=== PATIENT | male | born 1950 | race Caucasian/White ===

== ENCOUNTER 2017-04-26 11:15 | Observation (INO) ==
[2017-04-26] MEDS ORDERED: Ipratropium/Albuterol Neb 3 ML IH ONE (11:25)
[2017-04-26] MEDS ORDERED: methylPREDNISolone 125 MG/2 ML VIAL IVP ONE (11:25)
--- NOTE | 2017-04-26 11:38 | Emergency Department Note ---
Disposition Clinical Impression: Rectal bleeding, External hemorrhoid Disposition: Admitted As Inpatient Condition: Fair Referrals: Olaf Joseph DO [Primary Care Provider] - Forms: ED Satisfaction Letter Time of Disposition: 14:09 GI Bleed HPI - General Chief complaint: ED GI Bleed Stated complaint: "rectal bleeding" Time Seen by Provider: 04/26/17 11:20 Source: patient, EMS Mode of arrival: EMS Limitations: no limitations Nursing Notes Reviewed: Yes Vital Signs Reviewed: Yes - History of Present Illness HPI Narrative: 66-year-old comes in with grossly bloody stool. Patient states he has an external hemorrhoid had a bowel movement 3 days ago and noted persistent bleeding. Have a history of diverticular disease but states he's never had any bleeding from that. She does take iron. He says his stools are dark and tarry. Pt Subjective Complaint: blood streaked stool Onset (ago): day(s) Consistency: constant Severity: moderate Improves with: nothing Worsens with: nothing Context: hemorrhoids, anticoagulant use (Aspirin), other (Diverticular disease) Associated symptoms: Reports: none - Related Data Home Medications Medication Instructions Recorded Confirmed Albuterol Sulfate [Proventil Hfa] 1 puff IH Q6HR PRN 08/19/15 04/02/16 Amlodipine Besylate 5 mg PO DAILY 08/19/15 04/02/16 Carvedilol [Coreg] 50 mg PO BID 08/19/15 04/02/16 Oxygen 2 l AER CONT 08/19/15 04/02/16 Sennosides/Docusate Sodium [Senna 1 tab PO BID PRN 08/19/15 04/02/16 Plus] Sertraline [Zoloft] 100 mg PO HS 08/19/15 04/02/16 hydrOXYzine HCl [Hydroxyzine HCl] 50 mg PO HS 08/19/15 04/02/16 Budesonide/Formoterol 160/4.5 2 puff IH BIDR 12/11/15 04/02/16 [Symbicort 160/4.5] Fluticasone/Vilanterol [Breo 1 each IH DAILY 12/11/15 04/02/16 Ellipta 100-25 Mcg INH] Lisinopril [Zestril] 40 mg PO DAILY 12/11/15 04/02/16 cloNIDine HCl [CloNIDine HCl] 0.1 mg PO TID 12/11/15 04/02/16 hydroCHLOROthiazide 25 mg PO DAILY 12/11/15 04/02/16 [Hydrochlorothiazide] Folic Acid 1 mg PO DAILY 12/20/15 04/02/16 Albuterol Sulfate [Ventolin Hfa] 90 mcg IH PRN PRN 02/07/16 04/02/16 Atorvastatin Calcium [Lipitor] 20 mg PO DAILY 02/07/16 04/02/16 Psyllium Husk/Aspartame [Fiber 660 gm PO DAILY 02/07/16 04/02/16 Therapy Powder] Previous Rx's Medication Instructions Recorded Aspirin 81 mg PO DAILY tab.chew 04/09/16 Calcium Carbonate [Tums] 1,000 mg PO Q4HR PRN #0 tab.chew 04/09/16 Hydrocodone/Acetaminophen [Gates 1 each PO 3-4XD PRN #90 tablet 04/09/16 5-325 Tablet] LORazepam [Ativan] 1 mg PO TID PRN #90 tablet 04/09/16 TraZODone 100 mg PO HS PRN #0 tablet 04/09/16 Folic Acid 1 mg PO DAILY #30 tablet 03/11/17 LORazepam [Ativan] 0.5 mg PO HS #6 tablet 03/11/17 Allergies Allergy/AdvReac Type Severity Reaction Status Date / Time cat pelt standardized Allergy Rash Verified 04/26/17 11:22 allergenic ex Penicillins Allergy Hives Verified 03/11/17 15:30 ragweed pollen Allergy See Verified 03/11/17 15:30 Comments All systems ED: reviewed and negative except as stated. Constitutional: Denies: fever, chills, weakness, weight change Eyes: Denies: eye pain, eye discharge, vision change ENT ED: Denies: ear pain, throat pain, dental pain, hearing loss, epistaxis, congestion, dysphagia Cardiovascular: Denies: chest pain, palpitations, dyspnea on exertion, edema, syncope Respiratory: Denies: cough, dyspnea, wheezes, hemoptysis, stridor Gastrointestinal: Reports: hematochezia. Denies: abdominal pain, nausea, vomiting, diarrhea, constipation, hematemesis, melena Genitourinary: Denies: urgency, dysuria, frequency, hematuria Musculoskeletal: Denies: back pain, neck pain, arthralgia, myalgia Integumentary: Denies: rash, abrasion, lesions Neurological: Denies: headache, weakness, numbness, paresthesias, confusion, abnormal gait, vertigo Psychiatric: Denies: anxiety, depression, suicidal thoughts, homicidal thoughts , auditory hallucinations, visual hallucinations Endocrine: Denies: fatigue Hematological/Lymphatic: Denies: easy bleeding, easy bruising Allergic/Immunologic: Denies: facial swelling, urticaria Past Medical History - Past Medical History Medical history: Reports: non-contributory Surgical history: Reports: appendectomy, hip replacement, knee replacement, other Psychiatric history: Reports: previous psychiatric hospitalization. Denies: prior suicide attempt - Social History Smoking Status: Former smoker Smokeless Tobacco Status: No Alcohol use: Reports: occasionally Drug use: Reports: none Physical Exam - General Limitations: no limitations General appearance: alert, in no apparent distress - Head Head exam: atraumatic, normocephalic, normal inspection - Eye Eye exam: Present: normal appearance, PERRL, EOMI - ENT ENT exam: normal exam, normal oropharynx, mucous membranes moist - Neck Neck exam: Present: normal inspection, full ROM, trachea midline - Chest Chest inspection: Present: normal inspection, symmetric chest wall rise - Respiratory Respiratory exam: Present: normal lung sounds bilaterally - Cardiovascular Cardiovascular exam: Present: regular rate, normal rhythm, normal heart sounds - Abdominal Exam Abdominal exam: Present: soft, Non-Tender. Absent: tenderness, distention, guarding, rebound, rigidity - Rectal Exam Rectal exam: Present: black stool, bloody stool, hemorrhoids (External hemorrhoid) - Extremities Exam Extremities exam: Present: normal inspection, full ROM. Absent: tenderness, pedal edema - Expanded Lower Extremity Exam Neurovascular/Tendon exam: Absent: motor deficit, sensory deficit, tendon deficit Gait: not tested/not observed - Back Exam Back exam: Present: normal inspection, full ROM. Absent: tenderness - Neurological Exam Neurological exam: Present: alert, oriented X3 - Psychiatric Psychiatric exam: Present: normal affect, normal mood - Skin Skin exam: Present: warm, dry, intact, normal color Course - Reevaluation(s) Reevaluation #1: 66-year-old comes in with blood per rectum. Patient states his being on for the last couple of days. On exam the patient does have an external hemorrhoid that did have some blood on it however when I do the rectal he's got dark tarry stools above that. However he is also on iron which complicates things. I tried to get a sample of the stool above the hemorrhoid and we sent it and it was positive for blood. Since the patient's had a gram hemoglobin drop since his last workup go ahead and admit for evaluation. Time: 14:07 - Consultations Consultation #1: Discussed with Dr. Freeman, admit Time: 14:07 Vital Signs Temperature 98.8 F 04/26/17 11:23 Pulse Rate 52 04/26/17 11:23 Respiratory Rate 20 04/26/17 11:23 Blood Pressure 131/86 04/26/17 11:23 O2 Sat by Pulse Oximetry 96 04/26/17 11:23 Temperature 98.8 F 04/26/17 11:23 Pulse Rate 59 04/26/17 13:00 Respiratory Rate 20 04/26/17 13:00 Blood Pressure 128/85 04/26/17 13:00 O2 Sat by Pulse Oximetry 97 04/26/17 13:00 Oxygen Delivery Oxygen Delivery Nasal Cannula GI Bleed - Lab Data Result diagrams: 04/26/17 12:13 04/26/17 12:13 Lab Results 04/26/17 04/26/17 04/26/17 Range/Units 11:30 12:13 12:13 WBC 7.8 (4.3-11.1) K/mcL RBC 4.35 (4.19-5.50) M/mcL Hgb 12.5 L (12.9-16.9) g/dL Hct 38.2 (37.5-50.1) % MCV 87.8 (83.0-100.0) fL MCH 28.7 (28.0-33.3) pg MCHC 32.7 (31.6-35.5) g/dL RDW 15.1 H (11.5-14.5) % Plt Count 205 (140-400) K/mcL MPV 10.2 (9.4-12.4) fL Immature Gran % 0.5 (0-4) % Seg Neutrophils % 74.5 % Lymphocytes % 13.7 % Monocytes % 10.0 % Eosinophils % 0.9 % Basophils % 0.4 % Neutrophils # 5.8 (1.6-8.9) K/mcL Lymphocytes # 1.1 (0.6-4.6) K/mcL Monocytes # 0.8 (0.0-1.3) K/mcL Eosinophils # 0.1 (0.0-0.6) K/mcL Basophils # 0.0 (0.0-0.2) K/mcL PT 11.1 (9.4-12.1) Seconds INR 1.0 APTT 28.5 (26.0-36.0) Seconds Sodium (136-145) mEq/L Potassium (3.5-4.5) mEq/L Chloride (98-109) mEq/L Carbon Dioxide (19-29) mEq/L BUN (8-26) mg/dL Creatinine (0.72-1.25) mg/dL Est GFR ( Amer) (> 60) Est GFR (Non-Af Amer) (> 60) BUN/Creatinine Ratio (6-26) Glucose (70-99) mg/dL Calculated Osmolality (280-300) Calcium (8.6-10.8) mg/dL Stool Occult Blood Positive A (Negative) Blood Type Antibody Screen 04/26/17 04/26/17 Range/Units 12:13 12:13 WBC (4.3-11.1) K/mcL RBC (4.19-5.50) M/mcL Hgb (12.9-16.9) g/dL Hct (37.5-50.1) % MCV (83.0-100.0) fL MCH (28.0-33.3) pg MCHC (31.6-35.5) g/dL RDW (11.5-14.5) % Plt Count (140-400) K/mcL MPV (9.4-12.4) fL Immature Gran % (0-4) % Seg Neutrophils % % Lymphocytes % % Monocytes % % Eosinophils % % Basophils % % Neutrophils # (1.6-8.9) K/mcL Lymphocytes # (0.6-4.6) K/mcL Monocytes # (0.0-1.3) K/mcL Eosinophils # (0.0-0.6) K/mcL Basophils # (0.0-0.2) K/mcL PT (9.4-12.1) Seconds INR APTT (26.0-36.0) Seconds Sodium 140 (136-145) mEq/L Potassium 3.7 (3.5-4.5) mEq/L Chloride 102 (98-109) mEq/L Carbon Dioxide 29 (19-29) mEq/L BUN 21 (8-26) mg/dL Creatinine 1.10 (0.72-1.25) mg/dL Est GFR ( Amer) > 60 (> 60) Est GFR (Non-Af Amer) > 60 (> 60) BUN/Creatinine Ratio 19 (6-26) Glucose 104 H (70-99) mg/dL Calculated Osmolality 293 (280-300) Calcium 9.6 (8.6-10.8) mg/dL Stool Occult Blood (Negative) Blood Type B POSITIVE Antibody Screen NEGATIVE - EKG Data EKG attestation: Yes I reviewed and interpreted this EKG. EKG shows normal: sinus rhythm Rate: bradycardia Rhythm: NSR Voltage: c/w LVH Interpretation: no acute changes
[2017-04-26 12:24] LABS: Basophils % 0.4 %; Eosinophils # 0.1 K/mcL (0.0-0.6); Eosinophils % 0.9 %; Hematocrit 38.2 % (37.5-50.1); Hemoglobin 12.5 g/dL (12.9-16.9); Immature Granulocytes % 0.5 % (0-4); Lymphocytes # 1.1 K/mcL (0.6-4.6); Lymphocytes % 13.7 %; Mean Corpuscular HGB Conc 32.7 g/dL (31.6-35.5); Mean Corpuscular Hemoglobin 28.7 pg (28.0-33.3); Mean Corpuscular Volume 87.8 fL (83.0-100.0); Mean Platelet Volume 10.2 fL (9.4-12.4); Monocytes # 0.8 K/mcL (0.0-1.3); Neutrophils # 5.8 K/mcL (1.6-8.9); Platelet Count 205 K/mcL (140-400); Red Blood Count 4.35 M/mcL (4.19-5.50); Red Cell Distribution Width 15.1 % (11.5-14.5); Segmented Neutrophils % 74.5 %
[2017-04-26 12:30] LABS: Prothrombin Time 11.1 Seconds (9.4-12.1)
[2017-04-26 12:33] LABS: Activated Partial Thrombo Time 28.5 Seconds (26.0-36.0)
[2017-04-26 12:42] LABS: BUN/Creatinine Ratio 19 (6-26); Blood Urea Nitrogen 21 mg/dL (8-26); Calcium 9.6 mg/dL (8.6-10.8); Carbon Dioxide 29 mEq/L (19-29); Chloride 102 mEq/L (98-109); Glucose 104 mg/dL (70-99); Osmolality,Calculated 293 (280-300); Potassium 3.7 mEq/L (3.5-4.5); Sodium 140 mEq/L (136-145); eGFR For African Americans > 60 (> 60); eGFR For Non-African Americans > 60 (> 60)
--- NOTE | 2017-04-26 15:07 | Internal Med History&Physical ---
Date of Encounter: 04/26/17 Time of Encounter: 15:05 Assessment and Plan (1) BRBPR (bright red blood per rectum) Current visit: Yes Status: Acute Patient had recurrent episodes of bright red bleeding per rectum. He has history of prior hemorrhoidal bleeding. Suspect that this is related to bleeding hemorrhoids. Vitals and hemoglobin are stable. As an hour at aneurysm and CT scan performed was not contrasted, however I doubt that this is any complication related to that like aortoenteric fistula. No symptoms to suggest upper G.I. bleed. Will keep on clear liquid diet follow H&H and consult gastroenterology. His last colonoscopy was 25 years ago. Regarding his chronic medical problems will continue his medications. He is full code Internal Medicine - H&P: HPI Chief complaint: brbpr History of present illness: Mr. Patel is a 66 year old male with multiple medical problems including hypertension, type B aortic dissection presented emergency room today with the main complain of bleeding per rectum. For the past 3 days patient has been having episodes of bleeding correct in which she describes as bright red blood. He was concerned because of the amount of bleeding when he notices that blood filled the whole toilet bowl. He had stopped eating so he does not have to move his bowels. He denies any lightheadedness nausea vomiting hematemesis, melena, abdominal pain fever or chills. He has prior history of hemorrhoidal bleeding. Last colonoscopy was 25 years ago. He is an aspirin 81 mg daily. He is not on any other antiplatelet anticoagulant medications. He is not in any nonsteroidal anti-inflammatory drugs. Past Med Surg Social Fam HX - Past Medical History Medical history: non-contributory Psychiatric history: previous psychiatric hospitalization - Past Surgical History Surgical History: appendectomy, hip replacement, knee replacement, other - Social History Smoking Status: Former smoker Smokeless Tobacco Status: No Alcohol use: occasionally Drug use: none - Family History Mother Living Status: Hx Family Cancer: Yes (overian cancer) Father Living Status: Hx Family Cardiac Disorders: Yes (heart attack) Brother Living Status: Hx Family Cancer: Yes (brain cancer) Internal Medicine - H&P: Meds Albuterol Sulfate [Proventil Hfa] 1 puff IH Q6HR PRN 08/19/15 [History] Amlodipine Besylate 5 mg PO DAILY 08/19/15 [History] Carvedilol [Coreg] 50 mg PO BID 08/19/15 [History] Oxygen 2 l AER CONT 08/19/15 [History] Sennosides/Docusate Sodium [Senna Plus] 1 tab PO BID PRN 08/19/15 [History] Sertraline [Zoloft] 100 mg PO HS 08/19/15 [History] hydrOXYzine HCl [Hydroxyzine HCl] 50 mg PO HS 08/19/15 [History] Budesonide/Formoterol 160/4.5 [Symbicort 160/4.5] 2 puff IH BIDR 12/11/15 [ History] Fluticasone/Vilanterol [Breo Ellipta 100-25 Mcg INH] 1 each IH DAILY 12/11/15 [ History] Lisinopril [Zestril] 40 mg PO DAILY 12/11/15 [History] cloNIDine HCl [CloNIDine HCl] 0.1 mg PO TID 12/11/15 [History] hydroCHLOROthiazide [Hydrochlorothiazide] 25 mg PO DAILY 12/11/15 [History] Folic Acid 1 mg PO DAILY 12/20/15 [History] Albuterol Sulfate [Ventolin Hfa] 90 mcg IH PRN PRN 02/07/16 [History] Atorvastatin Calcium [Lipitor] 20 mg PO DAILY 02/07/16 [History] Psyllium Husk/Aspartame [Fiber Therapy Powder] 660 gm PO DAILY 02/07/16 [History ] Aspirin 81 mg PO DAILY tab.chew 04/09/16 [Rx] Calcium Carbonate [Tums] 1,000 mg PO Q4HR PRN #0 tab.chew 04/09/16 [Rx] Hydrocodone/Acetaminophen [Jordan 5-325 Tablet] 1 each PO 3-4XD PRN #90 tablet [Rx] LORazepam [Ativan] 1 mg PO TID PRN #90 tablet 04/09/16 [Rx] TraZODone 100 mg PO HS PRN #0 tablet 04/09/16 [Rx] Folic Acid 1 mg PO DAILY #30 tablet 03/11/17 [Rx] LORazepam [Ativan] 0.5 mg PO HS #6 tablet 03/11/17 [Rx] 3 Allergy/AdvReac Type Severity Reaction Status Date / Time cat pelt standardized Allergy Rash Verified 04/26/17 11:22 allergenic ex Penicillins Allergy Hives Verified 03/11/17 15:30 ragweed pollen Allergy See Verified 03/11/17 15:30 Comments All Systems PM: A 10-system review of systems was performed and is negative for pertinent findings except as documented above in the HPI. Review of systems: 10 point review of systems is negative except for HPI - Constitutional Vitals: Temp Pulse Resp BP Pulse Ox 98.8 F 56 18 137/85 96 04/26/17 11:23 04/26/17 14:00 04/26/17 15:02 04/26/17 15:02 04/26/17 14:00 Exam: Gen.: patient is alert oriented times 3 not in distress. Cardiac: normal S1 S2 no additional sounds are murmurs. Chest: clear to auscultation. Abdomen: soft nontender nondistended. Lower extremity no swelling mucous membranes: moist Internal Med - H&P Results - Labs CBC & Chem 7: 04/26/17 12:13 04/26/17 12:13
[2017-04-26 17:43] LABS: Hematocrit 41.8 % (37.5-50.1); Hemoglobin 13.4 g/dL (12.9-16.9)
[2017-04-26] MEDS: Pantoprazole 40 MG VIAL IVP SCH (18:20)
[2017-04-26] MEDS ORDERED: *HR* LORazepam 1 MG TABLET PO PRN (20:52)
[2017-04-26] MEDS ORDERED: NON-FORMULARY MEDICATION 1 EACH EACH (Oxygen [Oxygen] 2 L) AER SCH (21:00)
[2017-04-26] MEDS: cloNIDine HCl 0.1 MG TABLET PO SCH (21:15)
[2017-04-26] MEDS: *HR* LORazepam 0.5 MG TABLET PO SCH (21:16)
[2017-04-26] MEDS: traZODone 50 MG TABLET PO PRN (21:16)
[2017-04-26] MEDS: Budesonide/Formoterol 160/4.5 MDI IH SCH (21:40)
[2017-04-27 00:39] LABS: Hematocrit 39.9 % (37.5-50.1)
[2017-04-27 08:00] LABS: Hematocrit 38.2 % (37.5-50.1); Hemoglobin 12.6 g/dL (12.9-16.9); Immature Granulocytes % 0.4 % (0-4); Lymphocytes # 0.7 K/mcL (0.6-4.6); Lymphocytes % 6.6 %; Mean Corpuscular Hemoglobin 28.4 pg (28.0-33.3); Mean Corpuscular Volume 86.2 fL (83.0-100.0); Mean Platelet Volume 10.6 fL (9.4-12.4); Monocytes # 0.3 K/mcL (0.0-1.3); Monocytes % 2.9 %; Neutrophils # 8.9 K/mcL (1.6-8.9); Platelet Count 222 K/mcL (140-400); Red Blood Count 4.43 M/mcL (4.19-5.50); Red Cell Distribution Width 14.8 % (11.5-14.5); Segmented Neutrophils % 90.1 %
[2017-04-27] MEDS: Budesonide/Formoterol 160/4.5 MDI IH SCH ×2 (08:01→20:37)
[2017-04-27] MEDS: Albuterol 2.5 MG/3 ML NEBULIZER IH PRN ×2 (08:15→11:15)
[2017-04-27] MEDS: cloNIDine HCl 0.1 MG TABLET PO SCH ×3 (08:44→20:14)
[2017-04-27] MEDS: Aspirin 81 MG TAB.CHEW PO SCH (08:44)
[2017-04-27] MEDS: Folic Acid 1 MG TABLET PO SCH (08:45)
[2017-04-27 08:46] LABS: BUN/Creatinine Ratio 19 (6-26); Blood Urea Nitrogen 21 mg/dL (8-26); Calcium 9.9 mg/dL (8.6-10.8); Carbon Dioxide 29 mEq/L (19-29); Chloride 101 mEq/L (98-109); Glucose 128 mg/dL (70-99); Magnesium 1.4 mg/dL (1.6-2.6); Osmolality,Calculated 295 (280-300); Potassium 3.4 mEq/L (3.5-4.5); Sodium 140 mEq/L (136-145); eGFR For African Americans > 60 (> 60); eGFR For Non-African Americans > 60 (> 60)
[2017-04-27] MEDS: Pantoprazole 40 MG VIAL IVP SCH (08:46)
[2017-04-27] MEDS: amLODIPine 5 MG TABLET PO SCH (08:46)
--- NOTE | 2017-04-27 10:59 | Internal Med Progress Note ---
Date of Encounter: 04/27/17 Time of Encounter: 10:30 - Assessment and plan (1) BRBPR (bright red blood per rectum) Current Visit: Yes Status: Acute Assessment and plan: Possibly secondary to hemorrhoids, patient has a known hx Hb stable, hemodynamically stable No GI on service today, consulted, will call a.m Patient is stable Will start anusol-hydrocort suppositories (2) External hemorrhoid Current Visit: Yes Status: Acute Assessment and plan: As above (3) Hypertension Current Visit: Yes Status: Chronic Assessment and plan: Resume home meds, continue same Qualifiers: Hypertension type: essential hypertension Qualified Code(s): I10 - Essential (primary) hypertension (4) Depression Current Visit: Yes Status: Chronic Assessment and plan: Resume home meds Qualifiers: Depression Type: major depressive disorder Major depression recurrence: recurrent Active/Remission status: currently active Major depression episode severity: severe Psychotic features: without psychotic features Qualified Code(s): F33.2 - Major depressive disorder, recurrent severe without psychotic features (5) CHF (congestive heart failure) Current Visit: Yes Status: Chronic Assessment and plan: Chroinc, EF normal per prior ECHO Continue home meds Euvolemic at this time Qualifiers: Congestive heart failure type: diastolic Congestive heart failure chronicity: chronic Qualified Code(s): I50.32 - Chronic diastolic (congestive ) heart failure - Subjective Interval history: Seen and evaluated at bedside No new complains - Constitutional Vitals: Temp Pulse Resp BP Pulse Ox 98.0 F 84 18 153/94 95 04/27/17 07:27 04/27/17 07:27 04/27/17 08:17 04/27/17 07:27 04/27/17 08:17 General appearance: Present: A&O X 3, pleasant, no acute distress - Head Head exam: Present: atraumatic, normocephalic - Eye Eye exam: Present: PERRL, conjuntiva pink, sclera anicteric Pupils: Present: PERRL - Neck Neck exam general surgery: Present: supple, trachea midline. Absent: lymphadenopathy - Respiratory Respiratory exam: Present: CTAB. Absent: accessory muscle use, rales, rhonchi, wheezes - Cardiovascular Cardiovascular exam: Present: RRR, +S1, +S2. Absent: diastolic murmur, gallop, rubs, systolic murmur - GI/Abdominal GI/Abdominal exam: Present: normal bowel sounds, soft, no peritoneal signs. Absent: distended, tenderness - Extremities Exam Extremities exam: Present: warm, radial pulses palpable and symmetrical. Absent : calf tenderness, cyanotic, pedal edema - Neurological Exam Neurological exam: Present: alert, CN II-XII intact, oriented X3, no focal deficits. Absent: pronater drift, facial droop, speech deficit - Skin Skin exam: Present: dry, intact Internal Medicine: Result - Labs CBC & Chem 7: 04/27/17 06:20 04/27/17 08:01 Labs: Short CBC 04/26/17 04/27/17 04/27/17 Range/Units 17:33 00:24 06:20 WBC 9.9 (4.3-11.1) K/mcL Hgb 13.4 13.0 12.6 L (12.9-16.9) g/dL Hct 41.8 39.9 38.2 (37.5-50.1) % Plt Count 222 (140-400) K/mcL Neutrophils # 8.9 (1.6-8.9) K/mcL BMP 04/27/17 08:01 Sodium 140 Potassium 3.4 L Chloride 101 Carbon Dioxide 29 BUN 21 Creatinine 1.10 Glucose 128 H Calcium 9.9 - ABG Interpretation ABG results: PT/INR, D-dimer PT 11.1 Seconds (9.4-12.1) 04/26/17 12:13 Consult Discharge Plan - Plan Referrals: Olaf Joseph DO [Primary Care Provider] -
[2017-04-27] MEDS: Hydrocortisone Acetate 25 MG RECTAL SUPPOSITORY RC SCH ×2 (13:33→20:17)
[2017-04-27] MEDS: hydroCHLOROthiazide 25 MG TABLET PO SCH (13:33)
[2017-04-27] MEDS: hydrOXYzine pamoate 25 MG CAPSULE PO SCH (20:15)
[2017-04-27] MEDS: traZODone 50 MG TABLET PO PRN (20:16)
[2017-04-27] MEDS: *HR* LORazepam 0.5 MG TABLET PO SCH (20:16)
[2017-04-27] MEDS ORDERED: SODIUM CHLORIDE/NAHCO3/KCL/PEG 4,000 ML SOLN.RECON PO ONE (21:32)
[2017-04-28 05:50] LABS: Basophils % 0.1 %; Hematocrit 39.2 % (37.5-50.1); Hemoglobin 12.5 g/dL (12.9-16.9); Immature Granulocytes % 0.4 % (0-4); Mean Corpuscular HGB Conc 31.9 g/dL (31.6-35.5); Mean Corpuscular Hemoglobin 27.9 pg (28.0-33.3); Mean Corpuscular Volume 87.5 fL (83.0-100.0); Mean Platelet Volume 10.4 fL (9.4-12.4); Monocytes % 9.2 %; Neutrophils # 9.2 K/mcL (1.6-8.9); Platelet Count 235 K/mcL (140-400); Red Blood Count 4.48 M/mcL (4.19-5.50); Segmented Neutrophils % 81.3 %
--- NOTE | 2017-04-28 06:26 | Electrocardiograph Report ---
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
[2017-04-28] MEDS: Budesonide/Formoterol 160/4.5 MDI IH SCH ×2 (10:33→19:30)
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
--- NOTE | 2017-04-28 12:14 | Internal Med Progress Note ---
Date of Encounter: 04/28/17 Time of Encounter: 12:13 - Assessment and plan (1) BRBPR (bright red blood per rectum) Current Visit: Yes Status: Acute Assessment and plan: Possibly secondary to hemorrhoids, patient has a known hx Hb stable, hemodynamically stable Continue anusol-hydrocort suppositories GI eval and colonoscopy today (2) External hemorrhoid Current Visit: Yes Status: Acute Assessment and plan: As above (3) Hypertension Current Visit: Yes Status: Chronic Assessment and plan: Resume home meds, continue same Qualifiers: Hypertension type: essential hypertension Qualified Code(s): I10 - Essential (primary) hypertension (4) Depression Current Visit: Yes Status: Chronic Assessment and plan: Resume home meds Qualifiers: Depression Type: major depressive disorder Major depression recurrence: recurrent Active/Remission status: currently active Major depression episode severity: severe Psychotic features: without psychotic features Qualified Code(s): F33.2 - Major depressive disorder, recurrent severe without psychotic features (5) CHF (congestive heart failure) Current Visit: Yes Status: Chronic Assessment and plan: Chroinc, EF normal per prior ECHO Continue home meds Euvolemic at this time Qualifiers: Congestive heart failure type: diastolic Congestive heart failure chronicity: chronic Qualified Code(s): I50.32 - Chronic diastolic (congestive ) heart failure - Subjective Interval history: Seen and evaluated at bedside No new complains Awaiting colonoscopy at time of review - Constitutional Vitals: Temp Pulse Resp BP Pulse Ox 97.9 F 55 18 104/69 95 04/28/17 03:06 04/28/17 03:06 04/28/17 03:06 04/28/17 03:06 04/28/17 03:06 General appearance: Present: A&O X 3, pleasant, no acute distress, obese - Head Head exam: Present: atraumatic, normocephalic - Eye Eye exam: Present: PERRL, conjuntiva pink, sclera anicteric Pupils: Present: PERRL - Neck Neck exam general surgery: Present: supple, trachea midline. Absent: lymphadenopathy - Respiratory Respiratory exam: Present: CTAB. Absent: accessory muscle use, rales, rhonchi, wheezes - Cardiovascular Cardiovascular exam: Present: RRR, +S1, +S2. Absent: diastolic murmur, gallop, rubs, systolic murmur - GI/Abdominal GI/Abdominal exam: Present: normal bowel sounds, soft, no peritoneal signs. Absent: distended, tenderness - Extremities Exam Extremities exam: Present: warm, radial pulses palpable and symmetrical. Absent : calf tenderness, cyanotic, pedal edema - Neurological Exam Neurological exam: Present: alert, CN II-XII intact, oriented X3, no focal deficits. Absent: pronater drift, facial droop, speech deficit - Skin Skin exam: Present: dry, intact Internal Medicine: Result - Labs CBC & Chem 7: 04/28/17 04:48 04/27/17 08:01 Labs: Short CBC 04/28/17 Range/Units 04:48 WBC 11.3 H (4.3-11.1) K/mcL Hgb 12.5 L (12.9-16.9) g/dL Hct 39.2 (37.5-50.1) % Plt Count 235 (140-400) K/mcL Neutrophils # 9.2 H (1.6-8.9) K/mcL - ABG Interpretation ABG results: PT/INR, D-dimer PT 11.1 Seconds (9.4-12.1) 04/26/17 12:13 Consult Discharge Plan - Plan Referrals: Olaf Joseph DO [Primary Care Provider] -
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
[2017-04-28] MEDS: Hydrocortisone Acetate 25 MG RECTAL SUPPOSITORY RC SCH ×2 (14:08→21:03)
[2017-04-28] MEDS: cloNIDine HCl 0.1 MG TABLET PO SCH ×3 (14:09→21:02)
[2017-04-28] MEDS: Cholecalciferol (D-3) 1,000 UNIT TABLET PO SCH (14:18)
[2017-04-28] MEDS: Aspirin 81 MG TAB.CHEW PO SCH (14:18)
[2017-04-28] MEDS: amLODIPine 5 MG TABLET PO SCH (14:18)
[2017-04-28] MEDS: Folic Acid 1 MG TABLET PO SCH (14:18)
[2017-04-28] MEDS: Psyllium 1 PACKET POWD.PACK PO SCH (14:19)
[2017-04-28] MEDS: hydroCHLOROthiazide 25 MG TABLET PO SCH (14:19)
[2017-04-28] MEDS: Pantoprazole 40 MG VIAL IVP SCH (14:19)
[2017-04-28] MEDS ORDERED: *HR* Propofol 200 MG/20 ML VIAL IVP ONE (14:21)
[2017-04-28] MEDS: Albuterol 2.5 MG/3 ML NEBULIZER IH PRN ×2 (16:32→19:30)
[2017-04-28] MEDS: hydrOXYzine pamoate 25 MG CAPSULE PO SCH (21:03)
[2017-04-28] MEDS: *HR* LORazepam 0.5 MG TABLET PO SCH (21:03)
[2017-04-29 05:54] LABS: Basophils % 0.2 %; Eosinophils % 0.1 %; Hematocrit 38.3 % (37.5-50.1); Hemoglobin 12.4 g/dL (12.9-16.9); Immature Granulocytes % 0.8 % (0-4); Lymphocytes # 1.3 K/mcL (0.6-4.6); Lymphocytes % 12.3 %; Mean Corpuscular HGB Conc 32.4 g/dL (31.6-35.5); Mean Corpuscular Hemoglobin 27.9 pg (28.0-33.3); Mean Corpuscular Volume 86.1 fL (83.0-100.0); Mean Platelet Volume 10.4 fL (9.4-12.4); Monocytes # 1.2 K/mcL (0.0-1.3); Monocytes % 11.3 %; Neutrophils # 7.6 K/mcL (1.6-8.9); Platelet Count 219 K/mcL (140-400); Red Blood Count 4.45 M/mcL (4.19-5.50); Segmented Neutrophils % 75.3 %
[2017-04-29] MEDS: Pantoprazole 40 MG VIAL IVP SCH (08:36)
[2017-04-29] MEDS: Aspirin 81 MG TAB.CHEW PO SCH (08:36)
[2017-04-29] MEDS: amLODIPine 5 MG TABLET PO SCH (08:37)
[2017-04-29] MEDS: Hydrocortisone Acetate 25 MG RECTAL SUPPOSITORY RC SCH (08:37)
[2017-04-29] MEDS: Folic Acid 1 MG TABLET PO SCH (08:37)
[2017-04-29] MEDS: Cholecalciferol (D-3) 1,000 UNIT TABLET PO SCH (08:37)
[2017-04-29] MEDS: hydroCHLOROthiazide 25 MG TABLET PO SCH (08:37)
[2017-04-29] MEDS: cloNIDine HCl 0.1 MG TABLET PO SCH (08:37)
[2017-04-29] MEDS: Psyllium 1 PACKET POWD.PACK PO SCH (08:38)
[2017-04-29] MEDS: Budesonide/Formoterol 160/4.5 MDI IH SCH (09:14)
[2017-04-29] MEDS: Albuterol 2.5 MG/3 ML NEBULIZER IH PRN (09:14)
[2017-04-29 11:16] VITALS: BP 114/78
--- NOTE | 2017-04-29 13:31 | Discharge Summary ---
Date of Encounter: 04/29/17 Time of Encounter: 08:30 - Discharge Diagnosis (1) BRBPR (bright red blood per rectum) Priority: Primary Status: Acute Comments: Diverticulosis and internal hemorrhoids - causing bright red blood per rectum - symptoms now improved H&H stable, colonoscopy revealed diverticulosis and sigmoid and internal hemorrhoids Advised repeat colonoscopy in 5 years for screening purposes, Anusol suppository rectally twice a day Advised follow-up regularly with primary care physician, return if symptoms worsen (2) Hypertension Priority: Secondary Status: Chronic Comments: Essential hypertension, controlled, continue home meds Qualifiers: Hypertension type: essential hypertension Qualified Code(s): I10 - Essential (primary) hypertension (3) CHF (congestive heart failure) Priority: Secondary Status: Chronic Comments: Diastolic CHF, normal LVEF, stable Continue home meds Qualifiers: Congestive heart failure type: diastolic Congestive heart failure chronicity: chronic Qualified Code(s): I50.32 - Chronic diastolic (congestive ) heart failure (4) Depression Priority: Secondary Status: Chronic Comments: Stable, Continue home meds Qualifiers: Depression Type: major depressive disorder Major depression recurrence: recurrent Major depression episode severity: severe Psychotic features: without psychotic features Qualified Code(s): F33.2 - Major depressive disorder, recurrent severe without psychotic features - Discharge Medications Prescriptions: Hydrocortisone Acetate [Anucort-Hc] 25 mg RC BID #14 supp.rect Home Medications: Albuterol Sulfate [Proventil Hfa] 1 puff IH Q6HR PRN 08/19/15 [History] Amlodipine Besylate 5 mg PO DAILY 08/19/15 [History] Carvedilol [Coreg] 50 mg PO BID 08/19/15 [History] Oxygen 2 l AER CONT 08/19/15 [History] Sennosides/Docusate Sodium [Senna Plus] 1 tab PO BID PRN 08/19/15 [History] Sertraline [Zoloft] 100 mg PO HS 08/19/15 [History] hydrOXYzine HCl [Hydroxyzine HCl] 50 mg PO HS 08/19/15 [History] Budesonide/Formoterol 160/4.5 [Symbicort 160/4.5] 2 puff IH BIDR 12/11/15 [ History] Fluticasone/Vilanterol [Breo Ellipta 100-25 Mcg INH] 1 puff IH DAILY 12/11/15 [ History] Lisinopril [Zestril] 40 mg PO DAILY 12/11/15 [History] cloNIDine HCl [CloNIDine HCl] 0.1 mg PO TID 12/11/15 [History] hydroCHLOROthiazide [Hydrochlorothiazide] 25 mg PO DAILY 12/11/15 [History] Atorvastatin Calcium [Lipitor] 20 mg PO DAILY 02/07/16 [History] Psyllium Husk/Aspartame [Fiber Therapy Powder] 660 gm PO DAILY 02/07/16 [History ] Aspirin 81 mg PO DAILY tab.chew 04/09/16 [Rx] LORazepam [Ativan] 1 mg PO TID PRN #90 tablet 04/09/16 [Rx] TraZODone 100 mg PO HS PRN #0 tablet 04/09/16 [Rx] Folic Acid 1 mg PO DAILY #30 tablet 03/11/17 [Rx] LORazepam [Ativan] 0.5 mg PO HS #6 tablet 03/11/17 [Rx] Ergocalciferol (VITAMIN D2) [Vitamin D2] 2,000 unit PO DAILY 04/26/17 [History] Ferrous Sulfate [Iron] 325 mg PO BID 04/26/17 [History] Losartan Potassium [Cozaar] 50 mg PO BID 04/26/17 [History] Omeprazole [PriLOSEC] 20 mg PO BID 04/26/17 [History] Hydrocortisone Acetate [Anucort-Hc] 25 mg RC BID #14 supp.rect 04/29/17 [Rx] Allergies/Adverse Reactions: 3 Allergy/AdvReac Type Severity Reaction Status Date / Time cat pelt standardized Allergy Rash Verified 04/26/17 11:22 allergenic ex Penicillins Allergy Hives Verified 03/11/17 15:30 ragweed pollen Allergy See Verified 03/11/17 15:30 Comments Date of admission: 04/26/17 14:20 Primary care physician: Olaf Joseph DO Consults: 04/26/17 15:02 Consult to Gastroenterology [CONS] Routine Consulting Provider: Gastroenterology Maryam Reason for Consult: BRBPR Call Completed: No 04/26/17 16:33 Consult to [employer] [CONS] Routine Reason for SW Consult: on waiting list for [facility], for independent living. currently has home [facility]. Anticipated date of discharge: 04/29/17 - Patient Status Disposition: Home Health Service Condition: Fair Functional capacity at discharge: uses cane/walker Overall status at discharge: patient is progressing back to baseline - Discharge Instructions Instructions: Hydrocortisone (Rectal) Follow Up With: Olaf Joseph DO [Primary Care Provider] - 05/05/17 10:20 am - Diet and Activity Activity: increase activity as tolerated, resume usual activities as tolerated, wear oxygen at all times Diet: advance to your usual diet, low fat, low cholesterol Hospital course: Mr. Patel is a 66 year old male with past medical history of JOEL, COPD, hypertension, depression and history of type B aortic dissection. He presented to the ED with complaints of bright red blood per rectum. Patient stated that the symptoms have been going on for about 3 days. He stated that the toilet and blood. He also complained of diarrhea and nausea but no vomiting. H&H has remained stable throughout his stay. Patient did not require any blood transfusion. GI has evaluated the patient. He underwent colonoscopy which revealed diverticulosis of sigmoid colon and internal hemorrhoids. Patient has been started on Metamucil and Anusol hydrocortisone for hemorrhoids. Patient is now tolerating oral diet well. He states his diarrhea is improved and has not noticed any blood in stool at this time. Patient denies chest pain or shortness of breath. He states he feels better and wants to go home today. Patient is being discharged with home health. Patient tolerated all his meds well. He had no other acute events or complications during his stay in the hospital. Patient has been explained about his condition and plan of care in detail. He understood and agreed. No unanswered questions. Patient has been advised to return if symptoms worsen. Advised follow-up with primary care physician. - Time Spent with Patient Total time spent providing and/or coordinating discharge services: Less than 30 minutes - Constitutional Vitals: Temp Pulse Resp BP Pulse Ox 98.2 F 74 16 114/78 91 04/29/17 11:15 04/29/17 11:15 04/29/17 11:15 04/29/17 11:15 04/29/17 11:15 General appearance: Present: A&O X 3, pleasant, no acute distress, obese, answers questions appropriately - Head Head exam: Present: atraumatic - Eye Eye exam: Present: EOMI - ENT ENT exam: Present: mucous membranes moist - Respiratory Respiratory exam: Present: CTAB. Absent: rales, rhonchi, wheezes, tachypnea - Cardiovascular Cardiovascular exam: Present: RRR, +S1, +S2 - GI/Abdominal GI/Abdominal exam: Present: soft. Absent: distended, firm, guarding, tenderness - Extremities Exam Extremities exam: Present: radial pulses palpable and symmetrical. Absent: calf tenderness, cyanotic, pedal edema - Neurological Exam Neurological exam: Present: alert, oriented X3, no focal deficits. Absent: facial droop, speech deficit
--- NOTE | 2017-04-29 13:54 | Physician Discharge Referral ---
Home Health/Hosp Referral Info Transfer to: Home Health Provider in Charge Post Discharge: PCP - Diagnosis (1) BRBPR (bright red blood per rectum) Priority: Primary Status: Acute (2) Hypertension Priority: Secondary Status: Chronic (3) CHF (congestive heart failure) Priority: Secondary Status: Chronic (4) Depression Priority: Secondary Status: Chronic - Respiratory Orders Smoking Cessation: Smoking cessation has been advised. For more information, call the [place] Tobacco Quit Line at 5-632-LDDZ-NOW. - Diet/Nutrition Diet/Nutrition Orders: Cardiac - Activity Activity Orders: Ambulate - Services Needed Following services are medically necessary services: Nursing, Physical Therapy - Transfer Medications Prescriptions: RX: Hydrocortisone Acetate [Anucort-Hc] 25 mg RC BID #14 supp.rect Home Medications: RX: Albuterol Sulfate [Proventil Hfa] 1 puff IH Q6HR PRN 08/19/15 [History] RX: Amlodipine Besylate 5 mg PO DAILY 08/19/15 [History] RX: Carvedilol [Coreg] 50 mg PO BID 08/19/15 [History] RX: Oxygen 2 l AER CONT 08/19/15 [History] RX: Sennosides/Docusate Sodium [Senna Plus] 1 tab PO BID PRN 08/19/15 [History] RX: Sertraline [Zoloft] 100 mg PO HS 08/19/15 [History] RX: hydrOXYzine HCl [Hydroxyzine HCl] 50 mg PO HS 08/19/15 [History] RX: Budesonide/Formoterol 160/4.5 [Symbicort 160/4.5] 2 puff IH BIDR 12/11/15 [ History] RX: Fluticasone/Vilanterol [Breo Ellipta 100-25 Mcg INH] 1 puff IH DAILY [History] RX: Lisinopril [Zestril] 40 mg PO DAILY 12/11/15 [History] RX: cloNIDine HCl [CloNIDine HCl] 0.1 mg PO TID 12/11/15 [History] RX: hydroCHLOROthiazide [Hydrochlorothiazide] 25 mg PO DAILY 12/11/15 [History] RX: Atorvastatin Calcium [Lipitor] 20 mg PO DAILY 02/07/16 [History] RX: Psyllium Husk/Aspartame [Fiber Therapy Powder] 660 gm PO DAILY 02/07/16 [ History] RX: Aspirin 81 mg PO DAILY tab.chew 04/09/16 [Rx] RX: LORazepam [Ativan] 1 mg PO TID PRN #90 tablet 04/09/16 [Rx] RX: TraZODone 100 mg PO HS PRN #0 tablet 04/09/16 [Rx] RX: Folic Acid 1 mg PO DAILY #30 tablet 03/11/17 [Rx] RX: LORazepam [Ativan] 0.5 mg PO HS #6 tablet 03/11/17 [Rx] RX: Ergocalciferol (VITAMIN D2) [Vitamin D2] 2,000 unit PO DAILY 04/26/17 [ History] RX: Ferrous Sulfate [Iron] 325 mg PO BID 04/26/17 [History] RX: Losartan Potassium [Cozaar] 50 mg PO BID 04/26/17 [History] RX: Omeprazole [PriLOSEC] 20 mg PO BID 04/26/17 [History] RX: Hydrocortisone Acetate [Anucort-Hc] 25 mg RC BID #14 supp.rect 04/29/17 [Rx] Allergies/Adverse Reactions: 3 Allergy/AdvReac Type Severity Reaction Status Date / Time cat pelt standardized Allergy Rash Verified 04/26/17 11:22 allergenic ex Penicillins Allergy Hives Verified 03/11/17 15:30 ragweed pollen Allergy See Verified 03/11/17 15:30 Comments Certification: Further, I certify that my clinical findings support that this patient is homebound (i.e. absences from home require considerable and taxing effort and are for medical reasons or yarsani services or infrequently or short duration when for other reasons) because: Homebound Reason: Patient requires assistance of a person or device to safely leave home Attestation: My signature below is to certify that this patient is under my care and that I, or nurse practitioner, or a physician's acute care assistant working with me, has a face-to -face encounter with this patient.
== END 2017-04-29 16:56 | disposition home health service (06) ==
LOC: 3BNU 11:15 → EMEROO 11:15 → SUATTDRO 14:20 → 3BNU 15:04
PROVIDERS: ADMIT Hospitalist; ATTEND Family Medicine

== ENCOUNTER 2017-10-31 16:57 | Observation (INO) ==
--- NOTE | 2017-10-31 17:16 | Emergency Department Note ---
Disposition Clinical Impression: Transient cerebral ischemia Qualifiers: Transient cerebral ischemia type: unspecified Qualified Code(s): G45.9 - Transient cerebral ischemic attack, unspecified Disposition: Admitted As Inpatient Condition: Good Referrals: Olaf Joseph DO [Primary Care Provider] - Forms: ED Satisfaction Letter Time of Disposition: 18:47 Neuro HPI - General Chief Complaint: ED Neuro Symptoms/Deficit Time Seen by Provider: 10/31/17 17:05 Source: patient, EMS Mode of arrival: EMS Limitations: no limitations Nursing Notes Reviewed: Yes Vital Signs Reviewed: Yes - History of Present Illness HPI Narrative: 67-year-old with a history of a traumatic brain injury remotely who has had TIAs in the past who comes in with acute onset of double vision that started 2 hours prior to arrival at 1500 p.m. The patient states it has improved considerably at this point in time. Onset of Symptoms Date: 10/31/17 Onset of Symptoms Time: 15:00 Symptom Onset Unknown: No Timing confirmed by: caregiver Location: other (Double vision) Severity: moderate Quality: other (Double vision) Symptoms Improving: Yes Improves with: time Worsens with: none Context: sudden onset On Anticoagulants: No Associated symptoms: Reports: confusion Treatments Prior to Arrival: none - Related Data Home Medications: Home Medications Medication Instructions Recorded Confirmed Amlodipine Besylate 5 mg PO DAILY 08/19/15 10/31/17 Carvedilol [Coreg] 50 mg PO BID 08/19/15 10/31/17 Oxygen 2 l AER CONT 08/19/15 10/31/17 Sertraline [Zoloft] 100 mg PO HS 08/19/15 10/31/17 hydrOXYzine HCl [Hydroxyzine HCl] 50 mg PO HS 08/19/15 10/31/17 Budesonide/Formoterol 160/4.5 2 puff IH BIDR 12/11/15 10/31/17 [Symbicort 160/4.5] Lisinopril [Zestril] 40 mg PO BID 12/11/15 10/31/17 cloNIDine HCl [CloNIDine HCl] 0.1 mg PO TID 12/11/15 10/31/17 hydroCHLOROthiazide 25 mg PO DAILY 12/11/15 10/31/17 [Hydrochlorothiazide] Atorvastatin Calcium [Lipitor] 20 mg PO DAILY 02/07/16 10/31/17 Ferrous Sulfate [Iron] 325 mg PO BID 04/26/17 10/31/17 Losartan Potassium [Cozaar] 50 mg PO BID 04/26/17 10/31/17 Omeprazole [PriLOSEC] 20 mg PO DAILY 04/26/17 10/31/17 Cholecalciferol (Vitamin D3) 1,000 unit PO DAILY 10/31/17 10/31/17 [Vitamin D] Docusate Sodium [Dok] 100 mg PO DAILY PRN 10/31/17 10/31/17 Fluticasone Propionate Nasal 2 spray NS DAILY 10/31/17 10/31/17 [Flonase] Ipratropium/Albuterol Neb [Duoneb] 1 vial IH DAILY PRN 10/31/17 10/31/17 Psyllium Husk [Daily Fiber] 0.52 gm PO QID PRN 10/31/17 10/31/17 Previous Rx's Medication Instructions Recorded Aspirin 81 mg PO DAILY tab.chew 04/09/16 TraZODone 100 mg PO HS PRN #0 tablet 04/09/16 Folic Acid 1 mg PO DAILY #30 tablet 03/11/17 LORazepam [Ativan] 0.5 mg PO HS #6 tablet 03/11/17 Allergies/Adverse Reactions: Allergies Allergy/AdvReac Type Severity Reaction Status Date / Time cat pelt standardized Allergy Rash Verified 04/26/17 11:22 allergenic ex Penicillins Allergy Hives Verified 03/11/17 15:30 ragweed pollen Allergy See Verified 03/11/17 15:30 Comments All systems ED: reviewed and negative except as stated. Constitutional: Denies: fever, chills, weakness, weight change Eyes: Reports: vision change (Double vision). Denies: eye pain, eye discharge ENT ED: Denies: ear pain, throat pain, dental pain, hearing loss, epistaxis, congestion, dysphagia Cardiovascular: Denies: chest pain, palpitations, dyspnea on exertion, edema, syncope Respiratory: Denies: cough, dyspnea, wheezes, hemoptysis, stridor Gastrointestinal: Denies: abdominal pain, nausea, vomiting, diarrhea, constipation, hematemesis, melena, hematochezia Genitourinary: Denies: urgency, dysuria, frequency, hematuria Musculoskeletal: Denies: back pain, neck pain, arthralgia, myalgia Integumentary: Denies: rash, abrasion, lesions Neurological: Denies: headache, weakness, numbness, paresthesias, confusion, abnormal gait, vertigo Psychiatric: Denies: anxiety, depression, suicidal thoughts, homicidal thoughts , auditory hallucinations, visual hallucinations Endocrine: Denies: fatigue Hematological/Lymphatic: Denies: easy bleeding, easy bruising Allergic/Immunologic: Denies: facial swelling, urticaria Past Medical History - Past Medical History Medical history: Reports: aortic aneurysm, asthma, COPD, GERD, hypertension, peripheral artery disease, renal disease, TIA Surgical history: Reports: appendectomy, knee replacement, other Psychiatric history: Reports: depression, previous psychiatric hospitalization - Social History Smoking Status: Never smoker Smokeless Tobacco Status: No Alcohol use: Reports: none Drug use: Reports: none Physical Exam - General Limitations: no limitations General appearance: alert, in no apparent distress - Head Head exam: atraumatic, normocephalic, normal inspection - Eye Eye exam: Present: normal appearance, PERRL, EOMI - ENT ENT exam: normal exam, normal oropharynx, mucous membranes moist - Neck Neck exam: Present: normal inspection, full ROM, trachea midline - Chest Chest inspection: Present: normal inspection, symmetric chest wall rise - Respiratory Respiratory exam: Present: normal lung sounds bilaterally - Cardiovascular Cardiovascular exam: Present: regular rate, normal rhythm, normal heart sounds - Abdominal Exam Abdominal exam: Present: soft, Non-Tender. Absent: tenderness, distention, guarding, rebound, rigidity - Extremities Exam Extremities exam: Present: normal inspection, full ROM. Absent: tenderness, pedal edema - Expanded Lower Extremity Exam Neurovascular/Tendon exam: Absent: motor deficit, sensory deficit, tendon deficit Gait: not tested/not observed - Back Exam Back exam: Present: normal inspection, full ROM. Absent: tenderness - Neurological Exam Neurological exam: Present: alert, oriented X3. Absent: motor sensory deficit - Psychiatric Psychiatric exam: Present: normal affect, normal mood - Skin Skin exam: Present: warm, dry, intact, normal color Course - Reevaluation(s) Reevaluation #1: 67-year-old with acute onset of double vision which has since improved significantly. CT of the head was negative for acute findings. Consultation obtained with neurology will admit patient TIA. Time: 18:46 - Consultations Consultation #1: Discussed with , will see the patient in consult. Time: 18:45 Consultation #2: Discussed with Dr. Murrieta, admit. Time: 19:49 Vital Signs Temperature 98.0 F 10/31/17 16:58 Pulse Rate 60 10/31/17 16:58 Respiratory Rate 16 10/31/17 16:58 Blood Pressure 143/108 10/31/17 16:58 O2 Sat by Pulse Oximetry 96 10/31/17 16:58 Temperature 98.0 F 10/31/17 16:58 Pulse Rate 59 10/31/17 17:02 Respiratory Rate 16 10/31/17 17:02 Blood Pressure 156/102 10/31/17 17:02 O2 Sat by Pulse Oximetry 97 10/31/17 17:32 Oxygen Delivery Oxygen Delivery Nasal Cannula Neuro Symptoms/Deficit - Lab Data Result diagrams: 10/31/17 17:12 10/31/17 17:12 Lab Results 10/31/17 10/31/17 10/31/17 Range/Units 17:12 17:12 17:12 WBC 9.0 (4.3-11.1) K/mcL RBC 4.60 (4.19-5.50) M/mcL Hgb 12.9 (12.9-16.9) g/dL Hct 40.2 (37.5-50.1) % MCV 87.4 (83.0-100.0) fL MCH 28.0 (28.0-33.3) pg MCHC 32.1 (31.6-35.5) g/dL RDW 14.2 (11.5-14.5) % Plt Count 246 (140-400) K/mcL MPV 9.9 (9.4-12.4) fL Immature Gran % 0.6 (0-4) % Seg Neutrophils % 75.2 % Lymphocytes % 13.4 % Monocytes % 8.7 % Eosinophils % 1.9 % Basophils % 0.2 % Neutrophils # 6.7 (1.6-8.9) K/mcL Lymphocytes # 1.2 (0.6-4.6) K/mcL Monocytes # 0.8 (0.0-1.3) K/mcL Eosinophils # 0.2 (0.0-0.6) K/mcL Basophils # 0.0 (0.0-0.2) K/mcL PT 11.4 (9.4-12.1) Seconds INR 1.1 APTT 29.4 (26.0-36.0) Seconds Sodium 139 (136-145) mEq/L Potassium 3.8 (3.5-5.1) mEq/L Chloride 102 (98-107) mEq/L Carbon Dioxide 31 H (23-29) mEq/L BUN 22 (8-23) mg/dL Creatinine 1.19 (0.70-1.30) mg/dL Est GFR ( Amer) > 60 (> 60) Est GFR (Non-Af Amer) > 60 (> 60) BUN/Creatinine Ratio 18 (6-26) Glucose 114 H (70-105) mg/dL Calculated Osmolality 292 (280-300) Calcium 9.4 (8.6-10.3) mg/dL Troponin I < 0.03 (< 0.04) ng/mL NIH Stroke Scale - Level of Consciousness LOC: Alert - LOC Questions LOC Questions: Answers both correctly - LOC Commands LOC Commands: Performs both correctly - Best Gaze Best Gaze: Normal - Visual Visual: No visual loss - Facial Palsy Facial Palsy: Normal - Motor Arms Motor Arm-Left: No drift for 10 seconds Motor Arm-Right: No drift for 10 seconds - Motor Legs Motor Leg-Left: No drift for 5 seconds Motor Leg-Right: No drift for 5 seconds - Limb Ataxia Limb Ataxia: Normal, No Ataxia - Sensory Sensory: Normal - Best Language Best Language: No aphasia - Dysarthria Dysarthria: Normal - Extinction and Inattention Extinction and Inattention: Normal - NIHSS Total Score NIHSS Total Score: 0 TPA Checklist - Eligibilty for IV tPA 1. LKW equal to or less than 4.5 hours be before treatment: Yes 2. Clinical diagnosis of ischemic stroke causing deficit: No - LKW: 3-4.5 hrs Add. Warnings/Precautions Patient/family understanding: The patient/family members have been counseled and understood the risk, benefit , and alternatives of treatment.
[2017-10-31 17:33] LABS: Basophils % 0.2 %; Eosinophils # 0.2 K/mcL (0.0-0.6); Eosinophils % 1.9 %; Hematocrit 40.2 % (37.5-50.1); Hemoglobin 12.9 g/dL (12.9-16.9); Immature Granulocytes % 0.6 % (0-4); Lymphocytes # 1.2 K/mcL (0.6-4.6); Lymphocytes % 13.4 %; Mean Corpuscular HGB Conc 32.1 g/dL (31.6-35.5); Mean Corpuscular Volume 87.4 fL (83.0-100.0); Mean Platelet Volume 9.9 fL (9.4-12.4); Monocytes # 0.8 K/mcL (0.0-1.3); Monocytes % 8.7 %; Neutrophils # 6.7 K/mcL (1.6-8.9); Platelet Count 246 K/mcL (140-400); Red Cell Distribution Width 14.2 % (11.5-14.5); Segmented Neutrophils % 75.2 %
[2017-10-31 17:58] LABS: BUN/Creatinine Ratio 18 (6-26); Blood Urea Nitrogen 22 mg/dL (8-23); Calcium 9.4 mg/dL (8.6-10.3); Carbon Dioxide 31 mEq/L (23-29); Chloride 102 mEq/L (98-107); Glucose 114 mg/dL (70-105); Osmolality,Calculated 292 (280-300); Potassium 3.8 mEq/L (3.5-5.1); Sodium 139 mEq/L (136-145); eGFR For African Americans > 60 (> 60); eGFR For Non-African Americans > 60 (> 60)
[2017-10-31 17:59] LABS: Troponin I < 0.03 ng/mL (< 0.04)
[2017-10-31 18:05] LABS: INR 1.1; Prothrombin Time 11.4 Seconds (9.4-12.1)
[2017-10-31 18:07] LABS: Activated Partial Thrombo Time 29.4 Seconds (26.0-36.0)
[2017-10-31] MEDS ORDERED: traZODone 50 MG TABLET PO PRN (19:34)
[2017-10-31] MEDS ORDERED: Naloxone 0.4 MG/ML INJ IVP PRN (19:38)
[2017-10-31] MEDS ORDERED: Acetaminophen 325 MG TABLET PO PRN (19:38)
--- NOTE | 2017-10-31 19:43 | Internal Med History&Physical ---
Date of Encounter: 11/01/17 Time of Encounter: 19:39 Internal Medicine - H&P: HPI Chief complaint: Double vision Admitted From: Emergency Dept Plans for Post Hospital Care: Home History of present illness: Mr. Patel is a 67 year old male a resident of [facility] with past medical history of TBI with baseline double vision, chronic LE edema, JOEL, COPD on chronic O2, hypertension, depression and history of type B aortic dissection who presents with sudden onset of worsening double vision since 3 pm. This has improved since arrival to the ED. Lasted 2 hours or so with a dull frontal headache. He has a baseline neuro deficit from a TBI in the that left him with balance issues but is still able to ambulate with no help. It also left him with finger tip numbness and decreased sensation in the left jaw area as he says the injury has damaged his CN V. CT head was negative for acute findings. BP was elevated somewhat with diastolic around 100. No other neurological symptoms. Neurology consulted in the ED and no tpa with symptoms improving and recommended admission with stroke work up. Denies fever, chills, nausea, vomiting, chest pain, shortness of breath, abdominal pain, urinary symptoms. No numbness or tingling. In the emergency department laboratory workup was unremarkable. Given ASA 325 mg in ED. Past Med Surg Social Fam HX - Past Medical History Medical history: aortic aneurysm, asthma, COPD, GERD, hypertension, peripheral artery disease, renal disease, TIA Psychiatric history: depression, previous psychiatric hospitalization - Past Surgical History Surgical History: appendectomy, knee replacement, other - Social History Smoking Status: Never smoker Smokeless Tobacco Status: No Alcohol use: none Drug use: none - Family History Mother Living Status: Hx Family Cancer: Yes Father Living Status: Hx Family Cardiac Disorders: Yes (heart attack) Brother Living Status: Hx Family Cancer: Yes (brain cancer) Internal Medicine - H&P: Meds Amlodipine Besylate 5 mg PO DAILY 08/19/15 [History] Carvedilol [Coreg] 50 mg PO BID 08/19/15 [History] Oxygen 2 l AER CONT 08/19/15 [History] Sertraline [Zoloft] 100 mg PO HS 08/19/15 [History] hydrOXYzine HCl [Hydroxyzine HCl] 50 mg PO HS 08/19/15 [History] Budesonide/Formoterol 160/4.5 [Symbicort 160/4.5] 2 puff IH BIDR 12/11/15 [ History] Lisinopril [Zestril] 40 mg PO BID 12/11/15 [History] cloNIDine HCl [CloNIDine HCl] 0.1 mg PO TID 12/11/15 [History] hydroCHLOROthiazide [Hydrochlorothiazide] 25 mg PO DAILY 12/11/15 [History] Atorvastatin Calcium [Lipitor] 20 mg PO DAILY 02/07/16 [History] Aspirin 81 mg PO DAILY tab.chew 04/09/16 [Rx] TraZODone 100 mg PO HS PRN #0 tablet 04/09/16 [Rx] Folic Acid 1 mg PO DAILY #30 tablet 03/11/17 [Rx] LORazepam [Ativan] 0.5 mg PO HS #6 tablet 03/11/17 [Rx] Ferrous Sulfate [Iron] 325 mg PO BID 04/26/17 [History] Losartan Potassium [Cozaar] 50 mg PO BID 04/26/17 [History] Omeprazole [PriLOSEC] 20 mg PO DAILY 04/26/17 [History] Cholecalciferol (Vitamin D3) [Vitamin D] 1,000 unit PO DAILY 10/31/17 [History] Docusate Sodium [Dok] 100 mg PO DAILY PRN 10/31/17 [History] Fluticasone Propionate Nasal [Flonase] 2 spray NS DAILY 10/31/17 [History] Ipratropium/Albuterol Neb [Duoneb] 1 vial IH DAILY PRN 10/31/17 [History] Psyllium Husk [Daily Fiber] 0.52 gm PO QID PRN 10/31/17 [History] 3 Allergy/AdvReac Type Severity Reaction Status Date / Time cat pelt standardized Allergy Rash Verified 04/26/17 11:22 allergenic ex Penicillins Allergy Hives Verified 03/11/17 15:30 ragweed pollen Allergy See Verified 03/11/17 15:30 Comments All Systems PM: A 10-system review of systems was performed and is negative for pertinent findings except as documented above in the HPI. Review of systems: All systems reviewed are negative except for as mentioned above - Constitutional Vitals: Temp Pulse Resp BP Pulse Ox 98.0 F 59 16 156/102 97 10/31/17 16:58 10/31/17 17:02 10/31/17 17:02 10/31/17 17:02 10/31/17 17:32 Exam: GEN: conversational dyspnea HEENT: AT, NC, No cyanosis, oral mucosa is moist, No JVD Lymphatics: No lymphadenoapthy Eyes: Extrocular muscles intact, anicteric CVS:RRR. S1, S2, No m/r/g RESP: CTAB ABD: Soft, NT, ND, +BS EXT: 2+ edema, No rashes, 2+ DP NEURO: Nonfocal, CN II-XII intact, No focal motor or sensory deficits Psych: Cooperative, Not anxious or depressed Internal Med - H&P Results - Labs CBC & Chem 7: 11/01/17 00:38 11/01/17 00:38 Labs: Short CBC 10/31/17 Range/Units 17:12 WBC 9.0 (4.3-11.1) K/mcL Hgb 12.9 (12.9-16.9) g/dL Hct 40.2 (37.5-50.1) % Plt Count 246 (140-400) K/mcL Neutrophils # 6.7 (1.6-8.9) K/mcL BMP 10/31/17 17:12 Sodium 139 Potassium 3.8 Chloride 102 Carbon Dioxide 31 H BUN 22 Creatinine 1.19 Glucose 114 H Calcium 9.4 Cardiac Enzymes 10/31/17 Range/Units 17:12 Troponin I < 0.03 (< 0.04) ng/mL - Impressions ITS Impressions Head CT 10/31/17 17:13 IMPRESSION: No acute intracranial abnormality. D/ / Blair James MD / Blair James MD Interpreting Provider: Blair James MD - Assessment and plan (1) Double vision Current Visit: Yes Status: Acute Assessment and plan: We will admit the patient telemetry for TIA/CVA workup. CT head was negative for acute findings. Will check MRI brain, echocardiogram, carotid duplex. Neurology is consulted. The patient is on aspirin 81 mg and count possibly be changed to Plavix. I will leave that up to neurology. Continue statin. Check lipid panel and A1c. Neuro checks. (2) COPD (chronic obstructive pulmonary disease) Current Visit: Yes Status: Acute Assessment and plan: Not in exacerbation. Resume inhalers. Patient is on chronic 2 L. Qualifiers: COPD type: unspecified COPD Qualified Code(s): J44.9 - Chronic obstructive pulmonary disease, unspecified (3) CHF (congestive heart failure) Current Visit: Yes Status: Acute Assessment and plan: Patient has 2 + edema in LE which he tells me is chronic. He has conversational dyspnea. I will check a BNP and CXR. will give a 1 time dose of 40 mg IV lasix. Resume home meds. Follow-up on echo. Qualifiers: Heart failure type: diastolic Heart failure chronicity: unspecified Qualified Code(s): I50.30 - Unspecified diastolic (congestive) heart failure (4) Hypertension Current Visit: No Status: Chronic Assessment and plan: Blood pressure is mildly elevated diastolically . Now it is better. He is listed as taking both an LIU inhibitor and an ARB as well as HCTZ, Norvasc, and a BB. Lisinopril is listed as 40 mg BID. Will decrease that to daily. Will hold his ARB. c/w HCTZ, norvasc and the BB. Qualifiers: Hypertension type: essential hypertension Qualified Code(s): I10 - Essential (primary) hypertension (5) Depression Current Visit: No Status: Chronic Assessment and plan: Resume antidepressants. Qualifiers: Depression Type: unspecified Qualified Code(s): F32.9 - Major depressive disorder, single episode, unspecified (6) DVT prophylaxis Current Visit: No Status: Acute Assessment and plan: Heparin subcutaneous - Time Spent With Patient Total time spent is greater than 50% in coordination of care (as documented) at patient's floor/unit and/or counseling patient:
[2017-10-31] MEDS ORDERED: Aspirin 325 MG TABLET PO ONE (20:26)
[2017-10-31] MEDS ORDERED: Furosemide 40 MG/4 ML VIAL IVP ONE (20:33)
[2017-10-31] MEDS ORDERED: Lisinopril 20 MG TABLET PO SCH (21:00)
[2017-10-31] MEDS: cloNIDine HCl 0.1 MG TABLET PO SCH (21:54)
[2017-10-31] MEDS: hydrOXYzine pamoate 25 MG CAPSULE PO SCH (21:54)
[2017-10-31] MEDS: *HR* Heparin 5,000 UNIT/ML VIAL SQ SCH (21:54)
[2017-10-31] MEDS: *HR* LORazepam 0.5 MG TABLET PO SCH (21:54)
[2017-10-31] MEDS: Budesonide/Formoterol 160/4.5 MDI IH SCH (22:49)
[2017-11-01 01:37] LABS: Basophils % 0.2 %; Eosinophils # 0.2 K/mcL (0.0-0.6); Eosinophils % 1.9 %; Hematocrit 38.7 % (37.5-50.1); Hemoglobin 12.3 g/dL (12.9-16.9); Immature Granulocytes % 0.7 % (0-4); Lymphocytes # 1.3 K/mcL (0.6-4.6); Lymphocytes % 14.8 %; Mean Corpuscular HGB Conc 31.8 g/dL (31.6-35.5); Mean Corpuscular Hemoglobin 27.7 pg (28.0-33.3); Mean Corpuscular Volume 87.2 fL (83.0-100.0); Mean Platelet Volume 10.4 fL (9.4-12.4); Monocytes # 0.9 K/mcL (0.0-1.3); Monocytes % 9.7 %; Neutrophils # 6.6 K/mcL (1.6-8.9); Platelet Count 249 K/mcL (140-400); Red Blood Count 4.44 M/mcL (4.19-5.50); Red Cell Distribution Width 14.1 % (11.5-14.5); Segmented Neutrophils % 72.7 %
[2017-11-01 02:04] LABS: Chol/HDL Ratio 2.5 (0-4.9); Potassium 3.7 mEq/L (3.5-5.1)
[2017-11-01 02:13] LABS: Thyroid Stimulating Hormone 1.221 mcIU/mL (0.340-5.600)
[2017-11-01] MEDS ORDERED: Magnesium Oxide 400 MG TABLET PO ONE (02:23)
[2017-11-01] MEDS: *HR* Heparin 5,000 UNIT/ML VIAL SQ SCH ×3 (05:10→21:16)
--- NOTE | 2017-11-01 08:30 | Internal Med Progress Note ---
Date of Encounter: 11/01/17 Time of Encounter: 08:00 - Assessment and plan (1) Double vision Current Visit: Yes Status: Acute Assessment and plan: MRI brain without contrast on 10/28/2017 ruled out acute infarct. Plan #1 neurology consult is pending #2 he could see ophthalmology outpatient (2) Hypertension Current Visit: No Status: Chronic Assessment and plan: Adequately controlled with amlodipine,Coreg, clonidine lisinopril and hydrochlorothiazide. Recommended high his dose of Coreg is 25 mg twice a day; however,, he is on 50. I will reduce this. Qualifiers: Hypertension type: essential hypertension Qualified Code(s): I10 - Essential (primary) hypertension (3) Depression Current Visit: No Status: Chronic Assessment and plan: Continue antidepressants. Qualifiers: Depression Type: unspecified Qualified Code(s): F32.9 - Major depressive disorder, single episode, unspecified (4) COPD (chronic obstructive pulmonary disease) Current Visit: Yes Status: Acute Assessment and plan: Not in exacerbation. Resume inhalers. Patient is on chronic 2 L. Qualifiers: COPD type: unspecified COPD Qualified Code(s): J44.9 - Chronic obstructive pulmonary disease, unspecified (5) CHF (congestive heart failure) Current Visit: Yes Status: Acute Assessment and plan: Continue Coreg and lisinopril Qualifiers: Heart failure type: diastolic Heart failure chronicity: unspecified Qualified Code(s): I50.30 - Unspecified diastolic (congestive) heart failure (6) Respiratory failure with hypoxia Current Visit: Yes Status: Chronic Assessment and plan: Continue supplemental oxygen Qualifiers: Chronicity: chronic Qualified Code(s): J96.11 - Chronic respiratory failure with hypoxia (7) Sleep apnea Current Visit: Yes Status: Acute Assessment and plan: Resume home CPAP upon discharge Qualifiers: Qualified Code(s): G47.33 - Obstructive sleep apnea (adult) (pediatric) (8) DVT prophylaxis Current Visit: No Status: Acute Assessment and plan: Heparin subcutaneous - Time Spent With Patient Total time spent is greater than 50% in coordination of care (as documented) at patient's floor/unit and/or counseling patient: 25 - 35 minutes - Subjective Interval history: Patient reports complete resolution of reported diplopia. In addition he reports he is unhappy with his [facility] and would like to move. - Constitutional Vitals: Temp Pulse Resp BP Pulse Ox 98.2 F 63 18 111/73 96 11/01/17 07:52 11/01/17 07:52 11/01/17 07:52 11/01/17 07:52 11/01/17 07:52 Exam: Physical exam Gen: Comfortable, laying in bed, in no visible distress, morbid obesity HEENT: Normocephalic, atraumatic. No conjunctival icterus. Moist oral mucosa. Neck: Supple Lungs: Clear to auscultation, no foreign sounds Heart: Normal S1-S2, no murmurs rubs or gallops Abdomen: Normoactive bowel sounds, no guarding rigidity or tenderness Extremities: No edema clubbing or cyanosis Neuro: Alert oriented 3, no focal motor or sensory deficits, No pass pointing. Cranial nerves grossly intact Skin: No skin lesions Internal Medicine: Result - Labs CBC & Chem 7: 11/01/17 00:38 11/01/17 00:38 Labs: Short CBC 11/01/17 Range/Units 00:38 WBC 9.0 (4.3-11.1) K/mcL Hgb 12.3 L (12.9-16.9) g/dL Hct 38.7 (37.5-50.1) % Plt Count 249 (140-400) K/mcL Neutrophils # 6.6 (1.6-8.9) K/mcL BMP 11/01/17 00:38 Sodium 140 Potassium 3.7 Chloride 100 Carbon Dioxide 33 H BUN 26 H Creatinine 1.51 H Glucose 113 H Calcium 9.0 - ABG Interpretation ABG results: PT/INR, D-dimer PT 11.4 Seconds (9.4-12.1) 10/31/17 17:12 Consult Discharge Plan - Plan Referrals: Olaf Joseph DO [Primary Care Provider] -
[2017-11-01] MEDS: Budesonide/Formoterol 160/4.5 MDI IH SCH ×2 (08:33→20:13)
[2017-11-01] MEDS ORDERED: hydroCHLOROthiazide 25 MG TABLET PO SCH (09:00)
[2017-11-01] MEDS: cloNIDine HCl 0.1 MG TABLET PO SCH ×3 (10:09→21:16)
[2017-11-01] MEDS: hydroCHLOROthiazide 25 MG TABLET PO SCH (10:12)
[2017-11-01] MEDS: Folic Acid 1 MG TABLET PO SCH (10:13)
[2017-11-01] MEDS: Cholecalciferol (D-3) 1,000 UNIT TABLET PO SCH (10:13)
[2017-11-01] MEDS: Lisinopril 20 MG TABLET PO SCH (10:13)
[2017-11-01] MEDS: Aspirin 81 MG TAB.CHEW PO SCH (10:13)
[2017-11-01] MEDS: amLODIPine 5 MG TABLET PO SCH (10:13)
[2017-11-01] MEDS: Fluticasone Propionate Nasal 50 MCG/SPRAY BOTTLE NS SCH (10:15)
[2017-11-01] MEDS ORDERED: Perflutren Lipid Microsphere 1.3 ML in 0.9 % Sodium Chloride 8.7 ML IVP ONE (11:22)
[2017-11-01] MEDS ORDERED: Albuterol 2.5 MG/3 ML NEBULIZER IH PRN (11:46)
--- NOTE | 2017-11-01 12:50 | Neurology - Consult Note ---
Date of Encounter: 11/01/17 Time of Encounter: 12:48 Assessment and Plan (1) Double vision Current Visit: Yes Status: Acute 67 year old man with multiple medical problems who developed transient double vision, lasting 2-3 hours and also with visual disturbances described as seeing a million flies' binocular occurring on each eye. MRI of brain showed no intracranial abnormality. Patient unable to complete carotid artery duplex but since his double vision is binocular it would not be explained by carotid artery pathology. barring carotid artery duplex study other TIA/CVA work up is negative. Will keep him on aspirin 81mg daily. He certainly needs to see an director it project for eye etiologies. From neurology perspective, not much to add at this time. The patient does appear to be mildly encephalopathic with presence of mild asterixis likely related to COPD and impaired renal function. Please continue medical and supportive care. It would be a good idea to get repeat Carotid artery duplex study if he can tolerate, this would be helpful to rule out carotid artery stenosis that can cause visual changes. Total time spent with this patient is around 50 minutes History of Present Illness Chief complaint: double vision and visual changes HPI: Mr. Patel is a 67 year old male 67 year old man with PMH significant for COPD , on oxygen supplementation, obesity, HTN, hyperlipidemia, who developed acute onset of double vision lasting 2-3 hours. Patient states that he has had similar episodes in the past where he would experience double vision, usually associated with chest pain. The double vision last no more than few minutes and it would go away. However, yesterday the double vision last 2-3 hours which never happened in the past. He also states that he is currently seeing 'a million flies' in front of his eye, more to the left eye than the right. No focal weakness. He does have COPD and uses oxygen supplementation around the clock. He states that his lung doctor told him that he needs to get 8 hours of sleep every night and that if he feels tired he needs to stop and rest and then go. He says that he is to see an eye doctor next week. Initially CT of head showed no acute abnormality. MRI of brain was also completed and showed no acute infarct. Past Med Surg Social Fam HX - Past Medical History Medical history: aortic aneurysm, asthma, COPD, GERD, hypertension, peripheral artery disease, renal disease, TIA Psychiatric history: depression, previous psychiatric hospitalization - Past Surgical History Surgical History: appendectomy, knee replacement, other - Social History Smoking Status: Never smoker Smokeless Tobacco Status: No Alcohol use: none Drug use: none - Family History Mother Living Status: Hx Family Cancer: Yes Father Living Status: Hx Family Cardiac Disorders: Yes (heart attack) Brother Living Status: Hx Family Cancer: Yes (brain cancer) Medications and Allergies RX: Amlodipine Besylate 5 mg PO DAILY 08/19/15 [History] RX: Carvedilol [Coreg] 50 mg PO BID 08/19/15 [History] RX: Oxygen 2 l AER CONT 08/19/15 [History] RX: Sertraline [Zoloft] 100 mg PO HS 08/19/15 [History] RX: hydrOXYzine HCl [Hydroxyzine HCl] 50 mg PO HS 08/19/15 [History] RX: Budesonide/Formoterol 160/4.5 [Symbicort 160/4.5] 2 puff IH BIDR 12/11/15 [ History] RX: Lisinopril [Zestril] 40 mg PO BID 12/11/15 [History] RX: cloNIDine HCl [CloNIDine HCl] 0.1 mg PO TID 12/11/15 [History] RX: hydroCHLOROthiazide [Hydrochlorothiazide] 25 mg PO DAILY 12/11/15 [History] RX: Atorvastatin Calcium [Lipitor] 20 mg PO DAILY 02/07/16 [History] RX: Aspirin 81 mg PO DAILY tab.chew 04/09/16 [Rx] RX: TraZODone 100 mg PO HS PRN #0 tablet 04/09/16 [Rx] RX: Folic Acid 1 mg PO DAILY #30 tablet 03/11/17 [Rx] RX: LORazepam [Ativan] 0.5 mg PO HS #6 tablet 03/11/17 [Rx] RX: Ferrous Sulfate [Iron] 325 mg PO BID 04/26/17 [History] RX: Losartan Potassium [Cozaar] 50 mg PO BID 04/26/17 [History] RX: Omeprazole [PriLOSEC] 20 mg PO DAILY 04/26/17 [History] Cholecalciferol (Vitamin D3) [Vitamin D] 1,000 unit PO DAILY 10/31/17 [History] Docusate Sodium [Dok] 100 mg PO DAILY PRN 10/31/17 [History] Fluticasone Propionate Nasal [Flonase] 2 spray NS DAILY 10/31/17 [History] Psyllium Husk [Daily Fiber] 0.52 gm PO QID PRN 10/31/17 [History] RX: Ipratropium/Albuterol Neb [Duoneb] 1 vial IH DAILY PRN 10/31/17 [History] 3 Allergy/AdvReac Type Severity Reaction Status Date / Time cat pelt standardized Allergy Rash Verified 04/26/17 11:22 allergenic ex Penicillins Allergy Hives Verified 03/11/17 15:30 ragweed pollen Allergy See Verified 03/11/17 15:30 Comments All Systems: The remainder of the systems were reviewed and are negative Physical Examination - Vital Signs Vital Signs: Initial Vital Signs Temp Pulse Resp BP Pulse Ox 98.0 F 60 16 143/108 96 10/31/17 16:58 10/31/17 16:58 10/31/17 16:58 10/31/17 16:58 10/31/17 16:58 - Constitutional General appearance: chronically ill (Does drop left arm slightly and says that he does not know but agrees that the left arm a little weak) - Neurologic Sensorimotor examination: other (Grossly intact) Detailed motor examination: grossly full strength in all extremities Motor examination - right side: 5/5: deltoids, biceps, triceps, wrist flexion, wrist extension, geology instructor, hip flexors, tibialis Anterior, quadriceps, toe extension (EHL), plantarflexion Motor examination - left side: 4/5: deltoids, 5/5: biceps, triceps, wrist flexion, wrist extension, hip flexors, geology instructor, quadriceps, tibialis Anterior, toe extension (EHL), plantarflexion Detailed sensory examination: other (Grossly intact) Posture: other (None) Reflex and gait examination: other (Gait not assessed) Reflexes: Biceps: 2+, Triceps: 2+, Brachioradialis: 2+, Patella: 2+, Achilles: 2 + Mental Status Examination: awake, alert, oriented to person, oriented to place, oriented to time, follows commands appropriately, answers questions appropriately, no agnosia, no aphasia, no aproxia Cranial nerve examination: PERRL, EOMI, visual gonzalez intact (in particular, no nystagmus identified), corneal reflexes brisk symmetrically, sensory to face intact, mastication intact, no facial asymmetry is present, no dysarthria, hearing is intact symmetrically, soft palate elevates bilaterally upon phonation , gag reflex intact, flexes SCM and trapezius muscles symmetrically with full power, tongue protrudes midline, no atrophy or facial fasiculations present Results - Laboratory Findings CBC and BMP: 11/01/17 00:38 04 00:38 Abnormal lab findings: Abnormal lab results Hgb 12.3 g/dL (12.9-16.9) L 11/01/17 00:38 MCH 27.7 pg (28.0-33.3) L 11/01/17 00:38 Carbon Dioxide 33 mEq/L (23-29) H 11/01/17 00:38 BUN 26 mg/dL (8-23) H 11/01/17 00:38 Creatinine 1.51 mg/dL (0.70-1.30) H 11/01/17 00:38 Est GFR ( Amer) 56 (> 60) L 11/01/17 00:38 Est GFR (Non-Af Amer) 47 (> 60) L 11/01/17 00:38 Glucose 113 mg/dL (70-105) H 11/01/17 00:38 - Diagnostic Findings Additional findings: CT/CT head/brain wo con IMPRESSION: No acute intracranial abnormality. MR/MR head/brain wo con IMPRESSION: Motion limited exam. No acute disease Impressions: Visualized vessels are within normal limits. The patient was unable to tolerate the examination secondary to breathing problems and requested that the exam be terminated EV/EV echocardiogram w enhance Impressions: Technically sub-optimal due to body habitus. LVEF 55%. Mild concentric left ventricular hypertrophy. Mild left ventricular diastolic dysfunction. Right ventricle was not well visualized. Grossly, it appears dilated with normal function. No evidence of pulmonary hypertension identified. RVSP not well obtained and could be underestimated. Suboptimal image quality, but the aortic root appears dilated up to 5.0 cm and the descending thoracic aorta just distal to the arch measures 6.3 cm. Consider dedicated imaging with a CT angiogram of the thoracic aorta for more accurate measurements. Agitated saline given, but image quality inadequate to evaluate for intra-cardiac shunting. Valves not well visualized. Grossly, no dysfunction noted. Consult Discharge Plan - Plan Referrals: Olaf Joseph DO [Primary Care Provider] -
[2017-11-01] MEDS: Albuterol 2.5 MG/3 ML NEBULIZER IH SCH ×3 (17:10→23:34)
[2017-11-01] MEDS: *HR* LORazepam 0.5 MG TABLET PO SCH (21:16)
[2017-11-01] MEDS: hydrOXYzine pamoate 25 MG CAPSULE PO SCH (21:16)
[2017-11-02] MEDS: Albuterol 2.5 MG/3 ML NEBULIZER IH SCH ×5 (04:10→20:37)
[2017-11-02] MEDS: *HR* Heparin 5,000 UNIT/ML VIAL SQ SCH ×3 (05:15→20:43)
--- NOTE | 2017-11-02 07:53 | Internal Med Progress Note ---
Date of Encounter: 11/02/17 Time of Encounter: 08:00 - Assessment and plan (1) Double vision Current Visit: Yes Status: Acute Assessment and plan: ECHO 11/01/17 Technically sub-optimal due to body habitus. LVEF 55%. Mild concentric left ventricular hypertrophy. Mild left ventricular diastolic dysfunction. Right ventricle was not well visualized. Grossly, it appears dilated with normal function. No evidence of pulmonary hypertension identified. RVSP not well obtained and could be underestimated. Suboptimal image quality, but the aortic root appears dilated up to 5.0 cm and the descending thoracic aorta just distal to the arch measures 6.3 cm. Consider dedicated imaging with a CT angiogram of the thoracic aorta for more accurate measurements. Agitated saline given, but image quality inadequate to evaluate for intra-cardiac shunting. Valves not well visualized. Grossly, no dysfunction noted. MRI brain without contrast on 10/28/2017 ruled out acute infarct. FINDINGS: INTRACRANIAL STRUCTURES/VENTRICLES: There is no acute infarct. No mass effect or midline shift. No evidence of an acute intracranial hemorrhage. The ventricles and sulci are prominent in size and configuration. The sellar/suprasellar regions appear unremarkable. The normal signal voids within the major intracranial vessels appear maintained. Mild periventricular T2 lengthening consistent with the microangiopathic change. Remote lacunar infarct in the right cerebellar hemisphere and in the basal ganglia and thalamus bilaterally. ORBITS: The visualized portion of the orbits demonstrate no acute abnormality. SINUSES: Polyp right maxillary sinus. BONES/SOFT TISSUES: The bone marrow signal intensity appears normal. The soft tissues demonstrate no acute abnormality. MR/MR head/brain wo con IMPRESSION: Motion limited exam. No acute disease Plan #1 Ophthalmology f/u outpatient (2) Hypertension Current Visit: No Status: Chronic Assessment and plan: Adequately controlled with amlodipine,Coreg, clonidine lisinopril and hydrochlorothiazide. Doses were corrected during this admission. Qualifiers: Hypertension type: essential hypertension Qualified Code(s): I10 - Essential (primary) hypertension (3) Depression Current Visit: No Status: Chronic Assessment and plan: Continue antidepressants. Qualifiers: Depression Type: unspecified Qualified Code(s): F32.9 - Major depressive disorder, single episode, unspecified (4) COPD (chronic obstructive pulmonary disease) Current Visit: Yes Status: Acute Assessment and plan: Not in exacerbation. Resume inhalers. Patient is on chronic 2 L. Qualifiers: COPD type: unspecified COPD Qualified Code(s): J44.9 - Chronic obstructive pulmonary disease, unspecified (5) CHF (congestive heart failure) Current Visit: Yes Status: Acute Assessment and plan: Continue Coreg and lisinopril Qualifiers: Heart failure type: diastolic Heart failure chronicity: unspecified Qualified Code(s): I50.30 - Unspecified diastolic (congestive) heart failure (6) Respiratory failure with hypoxia Current Visit: Yes Status: Chronic Assessment and plan: Continue supplemental oxygen Qualifiers: Chronicity: chronic Qualified Code(s): J96.11 - Chronic respiratory failure with hypoxia (7) Sleep apnea Current Visit: Yes Status: Acute Assessment and plan: Resume home CPAP upon discharge Qualifiers: Qualified Code(s): G47.33 - Obstructive sleep apnea (adult) (pediatric) (8) DVT prophylaxis Current Visit: No Status: Acute Assessment and plan: Heparin subcutaneous - Time Spent With Patient Total time spent is greater than 50% in coordination of care (as documented) at patient's floor/unit and/or counseling patient: 25 - 35 minutes (Barriers to discharge: Patient requesting placement in an alternative longterm. Social work is not available over the weekend. Likely discharge tomorrow.) - Subjective Interval history: Patient reports complete resolution of reported diplopia. No events overnight. No new complaints. - Constitutional Vitals: Temp Pulse Resp BP Pulse Ox 98.1 F 61 13 108/68 99 11/02/17 03:46 11/02/17 03:46 11/02/17 04:10 11/02/17 03:46 11/02/17 04:10 General appearance: Present: A&O X 3 Exam: Physical exam Gen: Comfortable, laying in bed, in no visible distress HEENT: Normocephalic, atraumatic. No conjunctival icterus. Moist oral mucosa. Neck: Supple Lungs: Clear to auscultation, no foreign sounds Heart: Normal S1-S2, no murmurs rubs or gallops Abdomen: Normoactive bowel sounds, no guarding rigidity or tenderness Extremities: No edema clubbing or cyanosis Neuro: Alert oriented 3, no focal deficits Skin: No skin lesions Internal Medicine: Result - Labs CBC & Chem 7: 11/01/17 00:38 11/01/17 00:38 - ABG Interpretation ABG results: PT/INR, D-dimer PT 11.4 Seconds (9.4-12.1) 10/31/17 17:12 - Impressions Impressions Echocardiogram 11/01/17 19:35 Impressions: Technically sub-optimal due to body habitus. LVEF 55%. Mild concentric left ventricular hypertrophy. Mild left ventricular diastolic dysfunction. Right ventricle was not well visualized. Grossly, it appears dilated with normal function. No evidence of pulmonary hypertension identified. RVSP not well obtained and could be underestimated. Suboptimal image quality, but the aortic root appears dilated up to 5.0 cm and the descending thoracic aorta just distal to the arch measures 6.3 cm. Consider dedicated imaging with a CT angiogram of the thoracic aorta for more accurate measurements. Agitated saline given, but image quality inadequate to evaluate for intra-cardiac shunting. Valves not well visualized. Grossly, no dysfunction noted. Left Ventricular Wall Motion: Rest Echo Findings All wall segments showed normal motion. Findings: Study Quality * Technically sub-optimal due to body habitus. ECG Findings * Sinus rhythm with BBB. Left Ventricle * LVEF 55%. * LV chamber size not well visualized. * Mild concentric left ventricular hypertrophy. * Mild left ventricular diastolic dysfunction. Right Ventricle * Right ventricle was not well visualized. Grossly, it appears dilated with normal function. Left Atrium * Left atrium is not well visualized. Right Atrium * Right atrium is not well visualized. Aortic Valve * Aortic valve not well visualized. * No aortic regurgitation. * No aortic stenosis. Mitral Valve * No mitral regurgitation. * No mitral stenosis. * Mitral valve not well visualized. Tricuspid Valve * Tricuspid valve not well visualized. * Trace tricuspid regurgitation. * No evidence of pulmonary hypertension identified. RVSP not well obtained and could be underestimated. Pulmonic Valve * Pulmonic valve not well visualized. Aorta * Suboptimal image quality, but the aortic root appears dilated up to 5.0 cm and the descending thoracic aorta just distal to the arch measures 6.3 cm. Consider dedicated imaging with a CT angiogram of the thoracic aorta. Pericardium * The pericardium appears normal. IVC * The IVC is not well evaluated. Pulmonary Artery * Pulmonary artery not well visualized. Interatrial Septum * Agitated saline given, but image quality inadequate to evaluate for intra-cardiac shunting. Consult Discharge Plan - Plan Referrals: Olaf oJseph DO [Primary Care Provider] -
[2017-11-02 08:14] LABS: Estimated Average Glucose 131 mg/dl; Hemoglobin A1C 6.2 %
[2017-11-02 08:55] LABS: BUN/Creatinine Ratio 23 (6-26); Blood Urea Nitrogen 25 mg/dL (8-23); Calcium 9.1 mg/dL (8.6-10.3); Carbon Dioxide 38 mEq/L (23-29); Chloride 102 mEq/L (98-107); Glucose 94 mg/dL (70-105); Osmolality,Calculated 304 (280-300); Potassium 3.9 mEq/L (3.5-5.1); Sodium 145 mEq/L (136-145); eGFR For African Americans > 60 (> 60); eGFR For Non-African Americans > 60 (> 60)
[2017-11-02] MEDS: hydroCHLOROthiazide 25 MG TABLET PO SCH (09:02)
[2017-11-02] MEDS: Cholecalciferol (D-3) 1,000 UNIT TABLET PO SCH (09:02)
[2017-11-02] MEDS: amLODIPine 5 MG TABLET PO SCH (09:02)
[2017-11-02] MEDS: Folic Acid 1 MG TABLET PO SCH (09:02)
[2017-11-02] MEDS: Lisinopril 20 MG TABLET PO SCH (09:02)
[2017-11-02] MEDS: Aspirin 81 MG TAB.CHEW PO SCH (09:02)
[2017-11-02] MEDS: cloNIDine HCl 0.1 MG TABLET PO SCH ×3 (09:02→20:41)
[2017-11-02] MEDS: Fluticasone Propionate Nasal 50 MCG/SPRAY BOTTLE NS SCH (09:03)
[2017-11-02] MEDS: Budesonide/Formoterol 160/4.5 MDI IH SCH ×2 (11:21→20:37)
--- NOTE | 2017-11-02 12:45 | Neurology Progress Note ---
Date of Encounter: 11/02/17 Time of Encounter: 12:41 Assessment and Plan (1) Double vision Current Visit: Yes Status: Acute 67 year old man with multiple medical problems who developed transient double vision, lasting 2-3 hours and also with visual disturbances described as seeing a million flies' binocular occurring on each eye. MRI of brain showed no intracranial abnormality. Patient unable to complete carotid artery duplex but since his double vision is binocular it would not be explained by carotid artery pathology. barring carotid artery duplex study other TIA/CVA work up is negative. Will keep him on aspirin 81mg daily. He certainly needs to see an customer development representative for eye etiologies or he may need new glasses. From neurology perspective, not much to add at this time. The patient does appear to be mildly encephalopathic with presence of mild asterixis likely related to COPD and impaired renal function. This may also be the reason why he has balance difficulty and leg weakness. Will sign off at this time. Please call if any questions Subjective Principal diagnosis: double vision and visual disturbances Interval history: Patient seen and examined. He is still weak and sleepy and says that he needs to sleep because he is sleep deprived. Easily arousable. He says that he finally figured out why he is having visual disturbances because he needs a new glass. He states that he is still feeling weak in his legs. Has been having balance difficultly lately. No other neurological discomforts. He states that he likes to go a different nursing facility than [facility] [place] due to his needs of having more comprehensive care. He is able to lift his legs off the bed, strength at least 4+/5, bilaterally. Objective - Constitutional Vitals: Temp Pulse Resp BP Pulse Ox 99.4 F 61 19 144/94 97 11/02/17 11:28 11/02/17 11:28 11/02/17 11:28 11/02/17 11:28 11/02/17 11:28 - Neurological Exam Sensorimotor examination: Present: other (Grossly intact) Motor Examination: Present: grossly full strength in all extremities Motor examination - left side: 4/5: deltoids, 5/5: biceps, triceps, wrist flexion, wrist extension, hip flexors, teacher early childhood development, quadriceps, tibialis Anterior, toe extension (EHL), plantarflexion Sensation intact: Present: other (Grossly intact) Posture: Present: other (None) Reflex and gait examination: other (Gait not assessed) Mental Status Examination: Present: awake, alert, oriented to person, oriented to place, oriented to time, follows commands appropriately, answers questions appropriately, no agnosia, no aphasia, no aproxia Cranial nerve examination: Present: PERRL, EOMI, visual gonzalez intact (in particular, no nystagmus identified), corneal reflexes brisk symmetrically, sensory to face intact, mastication intact, no facial asymmetry is present, no dysarthria, hearing is intact symmetrically, soft palate elevates bilaterally upon phonation, gag reflex intact, flexes SCM and trapezius muscles symmetrically with full power, tongue protrudes midline, no atrophy or facial fasiculations present Results - Laboratory Findings CBC and BMP: 11/01/17 00:38 11/02/17 08:00 Abnormal lab findings: Abnormal lab results Hgb 12.3 g/dL (12.9-16.9) L 11/01/17 00:38 MCH 27.7 pg (28.0-33.3) L 11/01/17 00:38 Carbon Dioxide 38 mEq/L (23-29) H 11/02/17 08:00 BUN 25 mg/dL (8-23) H 11/02/17 08:00 Hemoglobin A1c 6.2 % (-5.6) H 11/01/17 00:38 Calculated Osmolality 304 (280-300) H 11/02/17 08:00 Consult Discharge Plan - Plan Additional Instructions: Please make a follow up appointment with Optometry once discharged. Referrals: Olaf Joseph DO [Primary Care Provider] -
[2017-11-02] MEDS: Psyllium 1 PACKET POWD.PACK PO SCH ×2 (14:32→20:42)
[2017-11-02] MEDS: hydrOXYzine pamoate 25 MG CAPSULE PO SCH (20:40)
[2017-11-02] MEDS: *HR* LORazepam 0.5 MG TABLET PO SCH (20:41)
[2017-11-03] MEDS: Albuterol 2.5 MG/3 ML NEBULIZER IH SCH ×7 (00:05→23:15)
[2017-11-03] MEDS: *HR* Heparin 5,000 UNIT/ML VIAL SQ SCH ×3 (05:14→21:59)
[2017-11-03] MEDS: Psyllium 1 PACKET POWD.PACK PO SCH ×3 (09:29→21:59)
[2017-11-03] MEDS: Cholecalciferol (D-3) 1,000 UNIT TABLET PO SCH (09:29)
[2017-11-03] MEDS: Lisinopril 20 MG TABLET PO SCH (09:29)
[2017-11-03] MEDS: Aspirin 81 MG TAB.CHEW PO SCH (09:30)
[2017-11-03] MEDS: Folic Acid 1 MG TABLET PO SCH (09:30)
[2017-11-03] MEDS: cloNIDine HCl 0.1 MG TABLET PO SCH ×3 (09:30→21:59)
[2017-11-03] MEDS: Fluticasone Propionate Nasal 50 MCG/SPRAY BOTTLE NS SCH (09:30)
[2017-11-03] MEDS: amLODIPine 5 MG TABLET PO SCH (09:30)
[2017-11-03] MEDS: hydroCHLOROthiazide 25 MG TABLET PO SCH (09:30)
--- NOTE | 2017-11-03 10:14 | Discharge Summary ---
- NOTES TO OUTPATIENT PROVIDER Notes to Outpatient Provider: Primary care provider visit within the next 4 weeks Date of Encounter: 11/03/17 Time of Encounter: 09:00 - Discharge Diagnosis (1) Double vision Priority: Primary Status: Acute Assessment and Plan: ECHO 11/01/17 Technically sub-optimal due to body habitus. LVEF 55%. Mild concentric left ventricular hypertrophy. Mild left ventricular diastolic dysfunction. Right ventricle was not well visualized. Grossly, it appears dilated with normal function. No evidence of pulmonary hypertension identified. RVSP not well obtained and could be underestimated. Suboptimal image quality, but the aortic root appears dilated up to 5.0 cm and the descending thoracic aorta just distal to the arch measures 6.3 cm. Consider dedicated imaging with a CT angiogram of the thoracic aorta for more accurate measurements. Agitated saline given, but image quality inadequate to evaluate for intra-cardiac shunting. Valves not well visualized. Grossly, no dysfunction noted. MRI brain without contrast on 10/28/2017 ruled out acute infarct. FINDINGS: INTRACRANIAL STRUCTURES/VENTRICLES: There is no acute infarct. No mass effect or midline shift. No evidence of an acute intracranial hemorrhage. The ventricles and sulci are prominent in size and configuration. The sellar/suprasellar regions appear unremarkable. The normal signal voids within the major intracranial vessels appear maintained. Mild periventricular T2 lengthening consistent with the microangiopathic change. Remote lacunar infarct in the right cerebellar hemisphere and in the basal ganglia and thalamus bilaterally. ORBITS: The visualized portion of the orbits demonstrate no acute abnormality. SINUSES: Polyp right maxillary sinus. BONES/SOFT TISSUES: The bone marrow signal intensity appears normal. The soft tissues demonstrate no acute abnormality. MR/MR head/brain wo con IMPRESSION: Motion limited exam. No acute disease Plan #1 Ophthalmology f/u outpatient (2) Hypertension Priority: Secondary Status: Chronic Assessment and Plan: Adequately controlled with amlodipine,Coreg, clonidine lisinopril and hydrochlorothiazide. Doses were corrected during this admission. Qualifiers: Hypertension type: essential hypertension Qualified Code(s): I10 - Essential (primary) hypertension (3) Depression Priority: Secondary Status: Chronic Assessment and Plan: Continue antidepressants. Qualifiers: Depression Type: unspecified Qualified Code(s): F32.9 - Major depressive disorder, single episode, unspecified (4) COPD (chronic obstructive pulmonary disease) Priority: Secondary Status: Acute Assessment and Plan: Not in exacerbation. Resume inhalers. Patient is on chronic 2 L. Qualifiers: COPD type: unspecified COPD Qualified Code(s): J44.9 - Chronic obstructive pulmonary disease, unspecified (5) CHF (congestive heart failure) Priority: Secondary Status: Acute Assessment and Plan: Continue Coreg and lisinopril Qualifiers: Heart failure type: diastolic Heart failure chronicity: unspecified Qualified Code(s): I50.30 - Unspecified diastolic (congestive) heart failure (6) Respiratory failure with hypoxia Priority: Secondary Status: Chronic Assessment and Plan: Continue supplemental oxygen Qualifiers: Chronicity: chronic Qualified Code(s): J96.11 - Chronic respiratory failure with hypoxia (7) Sleep apnea Priority: Secondary Status: Acute Assessment and Plan: Resume home CPAP upon discharge Qualifiers: Qualified Code(s): G47.33 - Obstructive sleep apnea (adult) (pediatric) Hospital course: Mr. Patel is a 67 year old male a resident of [facility] with past medical history of TBI with baseline double vision, chronic LE edema, JOEL, COPD on chronic O2, hypertension, depression and history of type B aortic dissection who presents with sudden onset of worsening double vision since 3 pm. This has improved since arrival to the ED. Lasted 2 hours or so with a dull frontal headache. He has a baseline neuro deficit from a TBI in the that left him with balance issues but is still able to ambulate with no help. It also left him with finger tip numbness and decreased sensation in the left jaw area as he says the injury has damaged his CN V. CT head was negative for acute findings. BP was elevated somewhat with diastolic around 100. No other neurological symptoms. Neurology consulted in the ED and no tpa with symptoms improving and recommended admission with stroke work up. No numbness or tingling. In the emergency department laboratory workup was unremarkable. Given ASA 325 mg in ED. Initial suspicion was for ischemic stroke. MRI brain was obtained in addition to echo. There was no evidence of stroke. Echo was normal. His symptoms have since resolved. He expressed concerns about getting discharged to [facility] and is seeking placement elsewhere. Otherwise medically stable for discharge. Neurology saw the patient consultation and we decided to refer patient to outpatient ophthalmology. Discharge discussed with: patient - Time Spent with Patient Total time spent providing and/or coordinating discharge services: Greater than 30 minutes - Discharge Medications Prescriptions: amLODIPine [Norvasc] 5 mg PO DAILY #30 tablet Home Medications: Carvedilol [Coreg] 50 mg PO BID 08/19/15 [History] Oxygen 2 l AER CONT 08/19/15 [History] Sertraline [Zoloft] 100 mg PO HS 08/19/15 [History] hydrOXYzine HCl [Hydroxyzine HCl] 50 mg PO HS 08/19/15 [History] Budesonide/Formoterol 160/4.5 [Symbicort 160/4.5] 2 puff IH BIDR 12/11/15 [ History] cloNIDine HCl [CloNIDine HCl] 0.1 mg PO TID 12/11/15 [History] hydroCHLOROthiazide [Hydrochlorothiazide] 25 mg PO DAILY 12/11/15 [History] Atorvastatin Calcium [Lipitor] 20 mg PO DAILY 02/07/16 [History] Aspirin 81 mg PO DAILY tab.chew 04/09/16 [Rx] TraZODone 100 mg PO HS PRN #0 tablet 04/09/16 [Rx] Folic Acid 1 mg PO DAILY #30 tablet 03/11/17 [Rx] LORazepam [Ativan] 0.5 mg PO HS #6 tablet 03/11/17 [Rx] Ferrous Sulfate [Iron] 325 mg PO BID 04/26/17 [History] Omeprazole [PriLOSEC] 20 mg PO DAILY 04/26/17 [History] Cholecalciferol (Vitamin D3) [Vitamin D3] 1,000 unit PO DAILY 10/31/17 [History] Docusate Sodium [Dok] 100 mg PO DAILY PRN 10/31/17 [History] Fluticasone Propionate Nasal [Flonase] 2 spray NS DAILY 10/31/17 [History] Ipratropium/Albuterol Neb [Duoneb] 1 vial IH DAILY PRN 10/31/17 [History] Psyllium Husk [Daily Fiber] 0.52 gm PO QID PRN 10/31/17 [History] Lisinopril [Zestril] 40 mg PO DAILY tablet 11/03/17 [Rx] amLODIPine [Norvasc] 5 mg PO DAILY #30 tablet 11/03/17 [Rx] Allergies/Adverse Reactions: 3 Allergy/AdvReac Type Severity Reaction Status Date / Time cat pelt standardized Allergy Rash Verified 04/26/17 11:22 allergenic ex Penicillins Allergy Hives Verified 03/11/17 15:30 ragweed pollen Allergy See Verified 03/11/17 15:30 Comments Date of admission: 10/31/17 20:41 Primary care physician: Olaf Joseph DO Consults: 11/01/17 08:36 Consult to Case Management [CONS] Routine Comment: Placement in [facility] 11/01/17 16:49 Consult to Label Folder [CONS] Routine Reason for SW Consult: patient is unhappy with current ecf. He wants to be placed somewhere else. Discharging clinician: Bennett Salazar Anticipated date of discharge: 11/03/17 - Constitutional Vitals: Temp Pulse Resp BP Pulse Ox 98.0 F 68 18 148/100 98 11/03/17 07:23 11/03/17 07:23 11/03/17 07:45 11/03/17 07:23 11/03/17 07:45 General appearance: Present: A&O X 3 Exam: Physical exam Gen: Comfortable, laying in bed, in no visible distress HEENT: Normocephalic, atraumatic. No conjunctival icterus. Moist oral mucosa. Neck: Supple Lungs: Clear to auscultation, no foreign sounds Heart: Normal S1-S2, no murmurs rubs or gallops Abdomen: Normoactive bowel sounds, no guarding rigidity or tenderness Extremities: No edema clubbing or cyanosis Neuro: Alert oriented 3, no focal deficits Skin: No skin lesions - Patient Status Disposition: Transfer SNF Condition: Good Functional capacity at discharge: independent ambulation Overall status at discharge: patient is back to baseline - Discharge Instructions Follow Up With: Olaf Joseph DO [Primary Care Provider] - Ce Parker MD [Partnered Physician] - Additional Instructions: Please make a follow up appointment with Optometry once discharged. - Diet and Activity Activity: resume usual activities as tolerated Diet: advance to your usual diet
--- NOTE | 2017-11-03 10:22 | Electrocardiograph Report ---
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
[2017-11-03] MEDS: Budesonide/Formoterol 160/4.5 MDI IH SCH ×2 (11:11→19:33)
[2017-11-03] MEDS: hydrOXYzine pamoate 25 MG CAPSULE PO SCH (21:58)
[2017-11-03] MEDS: *HR* LORazepam 0.5 MG TABLET PO SCH (21:59)
[2017-11-04] MEDS: Albuterol 2.5 MG/3 ML NEBULIZER IH SCH ×5 (03:40→20:24)
[2017-11-04] MEDS: *HR* Heparin 5,000 UNIT/ML VIAL SQ SCH ×3 (05:16→20:40)
[2017-11-04] MEDS: Budesonide/Formoterol 160/4.5 MDI IH SCH ×2 (07:24→20:23)
[2017-11-04] MEDS: cloNIDine HCl 0.1 MG TABLET PO SCH ×3 (08:52→20:40)
[2017-11-04] MEDS: hydroCHLOROthiazide 25 MG TABLET PO SCH (08:52)
[2017-11-04] MEDS: Folic Acid 1 MG TABLET PO SCH (08:53)
[2017-11-04] MEDS: Lisinopril 20 MG TABLET PO SCH (08:53)
[2017-11-04] MEDS: Psyllium 1 PACKET POWD.PACK PO SCH ×3 (08:53→20:40)
[2017-11-04] MEDS: Cholecalciferol (D-3) 1,000 UNIT TABLET PO SCH (08:53)
[2017-11-04] MEDS: Aspirin 81 MG TAB.CHEW PO SCH (08:53)
[2017-11-04] MEDS: amLODIPine 5 MG TABLET PO SCH (08:53)
[2017-11-04] MEDS: Fluticasone Propionate Nasal 50 MCG/SPRAY BOTTLE NS SCH (14:17)
--- NOTE | 2017-11-04 15:00 | Internal Med Progress Note ---
Date of Encounter: 11/04/17 Time of Encounter: 14:49 - Assessment and plan (1) Double vision Current Visit: Yes Status: Resolved Assessment and plan: Presented with sudden onset of worsening double vision. Patient has a history of double vision secondary to TBI. However, upon day of admission he reports the double vision was markedly worse. Additionally, he reported dull headache at that time. Double vision had resolved by the time of arrival to the ED. Workup as follows was found to be negative. Patient is an ECF resident and this time would be suitable for discharge. However, he is not wishing to return to his prior ECF because he does not believe the care he needed. Currently we are waiting approval for [facility]. Additionally, we are waiting for evaluation of PT and OT. Pending approval and evaluation of PT/OT the patient should be suitable for discharge tomorrow barring any changes overnight. -Follow up with ophthalmology outpatient ECHO 11/01/17 Technically sub-optimal due to body habitus. LVEF 55%. Mild concentric left ventricular hypertrophy. Mild left ventricular diastolic dysfunction. Right ventricle was not well visualized. Grossly, it appears dilated with normal function. No evidence of pulmonary hypertension identified. RVSP not well obtained and could be underestimated. Suboptimal image quality, but the aortic root appears dilated up to 5.0 cm and the descending thoracic aorta just distal to the arch measures 6.3 cm. Consider dedicated imaging with a CT angiogram of the thoracic aorta for more accurate measurements. Agitated saline given, but image quality inadequate to evaluate for intra-cardiac shunting. Valves not well visualized. Grossly, no dysfunction noted. MRI brain without contrast on 10/28/2017 ruled out acute infarct. FINDINGS: INTRACRANIAL STRUCTURES/VENTRICLES: There is no acute infarct. No mass effect or midline shift. No evidence of an acute intracranial hemorrhage. The ventricles and sulci are prominent in size and configuration. The sellar/suprasellar regions appear unremarkable. The normal signal voids within the major intracranial vessels appear maintained. Mild periventricular T2 lengthening consistent with the microangiopathic change. Remote lacunar infarct in the right cerebellar hemisphere and in the basal ganglia and thalamus bilaterally. ORBITS: The visualized portion of the orbits demonstrate no acute abnormality. SINUSES: Polyp right maxillary sinus. BONES/SOFT TISSUES: The bone marrow signal intensity appears normal. The soft tissues demonstrate no acute abnormality. MR/MR head/brain wo con IMPRESSION: Motion limited exam. No acute disease Plan #1 Ophthalmology f/u outpatient (2) Hypertension Current Visit: Yes Status: Chronic Assessment and plan: History of HTN, controlled with amlodipine,Coreg, clonidine lisinopril and hydrochlorothiazide. Continue anti-HTN medications Qualifiers: Hypertension type: essential hypertension Qualified Code(s): I10 - Essential (primary) hypertension (3) Depression Current Visit: Yes Status: Chronic Assessment and plan: Continue antidepressants at home dose. Qualifiers: Depression Type: unspecified Qualified Code(s): F32.9 - Major depressive disorder, single episode, unspecified (4) COPD (chronic obstructive pulmonary disease) Current Visit: Yes Status: Acute Assessment and plan: Not in acute exacerbation. Resume the dilators. Patient is on chronic 2 L and continues to be on 2 L at this time. Qualifiers: COPD type: unspecified COPD Qualified Code(s): J44.9 - Chronic obstructive pulmonary disease, unspecified (5) CHF (congestive heart failure) Current Visit: Yes Status: Acute Assessment and plan: History of CHF, patient resting comfortably in no respiratory distress. Does not appear to be fluid overloaded. Continue Coreg and lisinopril Qualifiers: Heart failure type: diastolic Heart failure chronicity: unspecified Qualified Code(s): I50.30 - Unspecified diastolic (congestive) heart failure (6) Respiratory failure with hypoxia Current Visit: Yes Status: Chronic Assessment and plan: Respiratory failure is chronic secondary to COPD. Not requiring any additional SUPPLEMENTATION today. Continue supplemental oxygen Qualifiers: Chronicity: chronic Qualified Code(s): J96.11 - Chronic respiratory failure with hypoxia (7) Sleep apnea Current Visit: Yes Status: Acute Assessment and plan: History of sleep apnea, Resume home CPAP upon discharge Qualifiers: Qualified Code(s): G47.33 - Obstructive sleep apnea (adult) (pediatric) - Time Spent With Patient Total time spent is greater than 50% in coordination of care (as documented) at patient's floor/unit and/or counseling patient: 25 - 35 minutes - Subjective Interval history: Mr. Patel is a 67 year old male a resident of [facility] with past medical history of TBI with baseline double vision, chronic LE edema, JOEL, COPD on chronic O2, hypertension, depression and history of type B aortic dissection who presented with sudden onset of worsening double vision which has since resolved. He has not had a recurrence of double vision since admission. CT of the head was negative for acute findings. - Constitutional Vitals: Temp Pulse Resp BP Pulse Ox 98.3 F 91 17 113/75 94 11/04/17 10:47 11/04/17 10:47 11/04/17 11:28 11/04/17 10:47 11/04/17 11:28 General appearance: Present: A&O X 3 - Head Head exam: Present: atraumatic, normocephalic - Eye Eye exam: Present: PERRL, conjuntiva pink, sclera anicteric Pupils: Present: PERRL - Neck Neck exam general surgery: Present: supple, trachea midline. Absent: lymphadenopathy - Respiratory Respiratory exam: Present: decreased breath sounds (Throughout), CTAB. Absent: accessory muscle use, rales, rhonchi, wheezes, tachypnea Additional comments: No accessory muscle usage or pursed lip breathing denies any shortness of breath above baseline - Cardiovascular Cardiovascular exam: Present: RRR, +S1, +S2. Absent: diastolic murmur, gallop, rubs, systolic murmur - GI/Abdominal GI/Abdominal exam: Present: normal bowel sounds, soft, no peritoneal signs. Absent: distended, tenderness - Extremities Exam Extremities exam: Present: warm, radial pulses palpable and symmetrical. Absent : calf tenderness, cyanotic, pedal edema - Neurological Exam Neurological exam: Present: CN II-XII intact, oriented X3, no focal deficits. Absent: pronater drift, facial droop, speech deficit - Skin Skin exam: Present: dry, intact Internal Medicine: Result - Labs CBC & Chem 7: 11/01/17 00:38 11/02/17 08:00 - ABG Interpretation ABG results: PT/INR, D-dimer PT 11.4 Seconds (9.4-12.1) 10/31/17 17:12 Consult Discharge Plan - Plan Additional Instructions: Please make a follow up appointment with Optometry once discharged. Referrals: Olaf Joseph DO [Primary Care Provider] - Ce Parker MD [Partnered Physician] - Prescriptions: amLODIPine [Norvasc] 5 mg PO DAILY #30 tablet
[2017-11-04] MEDS: *HR* LORazepam 0.5 MG TABLET PO SCH (20:40)
[2017-11-04] MEDS: hydrOXYzine pamoate 25 MG CAPSULE PO SCH (20:40)
[2017-11-05] MEDS: Albuterol 2.5 MG/3 ML NEBULIZER IH SCH ×7 (00:22→23:57)
[2017-11-05] MEDS: *HR* Heparin 5,000 UNIT/ML VIAL SQ SCH ×3 (05:12→20:36)
[2017-11-05] MEDS: Budesonide/Formoterol 160/4.5 MDI IH SCH ×2 (07:58→20:00)
[2017-11-05] MEDS: amLODIPine 5 MG TABLET PO SCH (09:22)
[2017-11-05] MEDS: Psyllium 1 PACKET POWD.PACK PO SCH ×3 (09:22→20:35)
[2017-11-05] MEDS: Cholecalciferol (D-3) 1,000 UNIT TABLET PO SCH (09:22)
[2017-11-05] MEDS: Lisinopril 20 MG TABLET PO SCH (09:22)
[2017-11-05] MEDS: hydroCHLOROthiazide 25 MG TABLET PO SCH (09:22)
[2017-11-05] MEDS: Folic Acid 1 MG TABLET PO SCH (09:23)
[2017-11-05] MEDS: Aspirin 81 MG TAB.CHEW PO SCH (09:23)
[2017-11-05] MEDS: cloNIDine HCl 0.1 MG TABLET PO SCH ×3 (09:23→20:36)
[2017-11-05] MEDS: Fluticasone Propionate Nasal 50 MCG/SPRAY BOTTLE NS SCH (09:25)
--- NOTE | 2017-11-05 09:55 | Internal Med Progress Note ---
Date of Encounter: 11/05/17 Time of Encounter: 09:54 - Assessment and plan (1) Double vision Current Visit: Yes Status: Resolved Assessment and plan: As double vision at baseline due to TBI. They have admission double vision was markedly worse. However it improved prior to arrival to the ED. He has not had a recurrence. MRI brain unremarkable. Unable to complete carotid artery duplex however, given that his double vision is binocular could not be explained by carotid artery pathology. Throughout the stay TIA/CVA workup was found to be negative. Discharge is Pending approval patient still needs occupational therapy evaluation prior to DC. -Follow up with ophthalmology outpatient for further evaluation (2) Hypertension Current Visit: Yes Status: Chronic Assessment and plan: History of HTN, controlled with amlodipine,Coreg, clonidine lisinopril and hydrochlorothiazide. Blood pressure remained stable, continue anti-HTN medications Qualifiers: Hypertension type: essential hypertension Qualified Code(s): I10 - Essential (primary) hypertension (3) Depression Current Visit: Yes Status: Chronic Assessment and plan: Continue antidepressants Qualifiers: Depression Type: unspecified Qualified Code(s): F32.9 - Major depressive disorder, single episode, unspecified (4) COPD (chronic obstructive pulmonary disease) Current Visit: Yes Status: Acute Assessment and plan: Not in acute exacerbation. On 2 L nasal cannula chronically, continue upon discharge, continue bronchodilator upon discharge Qualifiers: COPD type: unspecified COPD Qualified Code(s): J44.9 - Chronic obstructive pulmonary disease, unspecified (5) CHF (congestive heart failure) Current Visit: Yes Status: Acute Assessment and plan: History of CHF, patient resting comfortably in no respiratory distress, no events reported overnight. Continue Coreg and lisinopril, HCTZ upon discharge Qualifiers: Heart failure type: diastolic Heart failure chronicity: unspecified Qualified Code(s): I50.30 - Unspecified diastolic (congestive) heart failure (6) Respiratory failure with hypoxia Current Visit: Yes Status: Chronic Assessment and plan: Respiratory failure is chronic secondary to COPD. Not requiring additional O2 supplementation. Continue supplemental oxygen when necessary Qualifiers: Chronicity: chronic Qualified Code(s): J96.11 - Chronic respiratory failure with hypoxia (7) Sleep apnea Current Visit: Yes Status: Acute Assessment and plan: History of sleep apnea, should discharged today. Continue CPAP per prior settings upon discharge. Qualifiers: Qualified Code(s): G47.33 - Obstructive sleep apnea (adult) (pediatric) - Time Spent With Patient Total time spent is greater than 50% in coordination of care (as documented) at patient's floor/unit and/or counseling patient: Greater than 35 minutes - Subjective Interval history: Mr. Patel is a 67 year old male a resident of [facility] with past medical history of TBI with baseline double vision, chronic LE edema, JOEL, COPD on chronic O2, hypertension, depression and history of type B aortic dissection who presented with sudden onset of worsening double vision which has since resolved. He has not had a recurrence of double vision since admission. No issues over night. Patient reports that he feels like he is back to baseline and is awaiting discharge. - Constitutional Vitals: Temp Pulse Resp BP Pulse Ox 98.5 F 73 16 158/92 93 11/05/17 07:15 11/05/17 07:15 11/05/17 08:00 11/05/17 07:15 11/05/17 08:00 General appearance: Present: A&O X 3, morbidly obese - Head Head exam: Present: atraumatic, normocephalic - Eye Eye exam: Present: PERRL, conjuntiva pink, sclera anicteric Pupils: Present: PERRL - Neck Neck exam general surgery: Present: supple, trachea midline. Absent: lymphadenopathy - Respiratory Respiratory exam: Present: decreased breath sounds (Decreased breath sounds throughout), CTAB. Absent: accessory muscle use, rales, rhonchi, wheezes, tachypnea - Cardiovascular Cardiovascular exam: Present: RRR, +S1, +S2. Absent: diastolic murmur, gallop, rubs, systolic murmur - GI/Abdominal GI/Abdominal exam: Present: normal bowel sounds, soft, no peritoneal signs. Absent: distended, tenderness - Extremities Exam Extremities exam: Present: warm, radial pulses palpable and symmetrical. Absent : calf tenderness, cyanotic, pedal edema - Neurological Exam Neurological exam: Present: CN II-XII intact, oriented X3, no focal deficits. Absent: pronater drift, facial droop, speech deficit - Skin Skin exam: Present: dry, intact Internal Medicine: Result - Labs CBC & Chem 7: 11/01/17 00:38 11/02/17 08:00 - ABG Interpretation ABG results: PT/INR, D-dimer PT 11.4 Seconds (9.4-12.1) 10/31/17 17:12 Consult Discharge Plan - Plan Additional Instructions: Please make a follow up appointment with Optometry once discharged. Referrals: Olaf Joseph DO [Primary Care Provider] - Ce Parker MD [Partnered Physician] - Prescriptions: amLODIPine [Norvasc] 5 mg PO DAILY #30 tablet
--- NOTE | 2017-11-05 10:07 | Discharge Summary ---
- NOTES TO OUTPATIENT PROVIDER Notes to Outpatient Provider: Follow-up with ophthalmology following discharge as outpatient due to worsening double vision Date of Encounter: 11/06/17 Time of Encounter: 10:05 - Discharge Diagnosis (1) Double vision Priority: Primary Status: Resolved Assessment and Plan: As double vision at baseline due to TBI. They have admission double vision was markedly worse. However it improved prior to arrival to the ED. He has not had a recurrence. MRI brain unremarkable. Unable to complete carotid artery duplex however, given that his double vision is binocular could not be explained by carotid artery pathology. Throughout the stay TIA/CVA workup was found to be negative. Discharge is Pending approval patient still needs occupational therapy evaluation prior to DC. -Follow up with ophthalmology outpatient for further evaluation (2) Hypertension Priority: Secondary Status: Chronic Assessment and Plan: History of HTN, controlled with amlodipine,Coreg, clonidine lisinopril and hydrochlorothiazide. Blood pressure remained stable no issues throughout the stay, continue anti-HTN medications Qualifiers: Hypertension type: essential hypertension Qualified Code(s): I10 - Essential (primary) hypertension (3) Depression Priority: Secondary Status: Chronic Assessment and Plan: Continue antidepressants Qualifiers: Depression Type: unspecified Qualified Code(s): F32.9 - Major depressive disorder, single episode, unspecified (4) COPD (chronic obstructive pulmonary disease) Priority: Secondary Status: Chronic Assessment and Plan: Not in acute exacerbation. On 2 L nasal cannula chronically, continue upon discharge, continue bronchodilator upon discharge Qualifiers: COPD type: unspecified COPD Qualified Code(s): J44.9 - Chronic obstructive pulmonary disease, unspecified (5) CHF (congestive heart failure) Priority: Secondary Status: Chronic Assessment and Plan: History of CHF, patient resting comfortably in no respiratory distress, no events reported overnight. Continue Coreg and lisinopril, HCTZ upon discharge Qualifiers: Heart failure type: diastolic Heart failure chronicity: unspecified Qualified Code(s): I50.30 - Unspecified diastolic (congestive) heart failure (6) Respiratory failure with hypoxia Priority: Secondary Status: Chronic Assessment and Plan: Respiratory failure is chronic secondary to COPD. Not requiring additional O2 supplementation. Continue supplemental oxygen when necessary Qualifiers: Chronicity: chronic Qualified Code(s): J96.11 - Chronic respiratory failure with hypoxia (7) Sleep apnea Priority: Secondary Status: Acute Assessment and Plan: History of sleep apnea, should discharged today. Continue CPAP per prior settings upon discharge. Qualifiers: Qualified Code(s): G47.30 - Sleep apnea, unspecified Hospital course: Mr. Patel is a 67 year old male who is a current resident of [facility] with a past medical history of TBI with baseline double vision, chronic lower extremity edema, JOEL, COPD on chronic O2, hypertension, depression and a history of type B aortic dissection. The patient initially presented with worsening double vision on the day of admission which had subsided prior to arrival to the ED. Double vision lasted approximately 2 hours with a dull frontal headache. He has had no recurrence of events throughout this stay. There was initial suspicion for possible ischemic stroke. TIA/CVA workup was negative for any acute findings on MRI, CT of head. Symptoms have continued to improve and patient is now back at baseline. Patient medically stable for discharge today. Patient was supposed to discharge yesterday however there was an issue with approval last minute the deflate his discharge. Discharge discussed with: patient, nurse, social work, case management - Time Spent with Patient Total time spent providing and/or coordinating discharge services: Greater than 30 minutes - Discharge Medications Prescriptions: amLODIPine [Norvasc] 5 mg PO DAILY #30 tablet Home Medications: Carvedilol [Coreg] 50 mg PO BID 08/19/15 [History] Oxygen 2 l AER CONT 08/19/15 [History] Sertraline [Zoloft] 100 mg PO HS 08/19/15 [History] hydrOXYzine HCl [Hydroxyzine HCl] 50 mg PO HS 08/19/15 [History] Budesonide/Formoterol 160/4.5 [Symbicort 160/4.5] 2 puff IH BIDR 12/11/15 [ History] cloNIDine HCl [CloNIDine HCl] 0.1 mg PO TID 12/11/15 [History] hydroCHLOROthiazide [Hydrochlorothiazide] 25 mg PO DAILY 12/11/15 [History] Atorvastatin Calcium [Lipitor] 20 mg PO DAILY 02/07/16 [History] Aspirin 81 mg PO DAILY tab.chew 04/09/16 [Rx] TraZODone 100 mg PO HS PRN #0 tablet 04/09/16 [Rx] Folic Acid 1 mg PO DAILY #30 tablet 09/05/17 [Rx] LORazepam [Ativan] 0.5 mg PO HS #6 tablet 03/11/17 [Rx] Ferrous Sulfate [Iron] 325 mg PO BID 04/26/17 [History] Omeprazole [PriLOSEC] 20 mg PO DAILY 04/26/17 [History] Cholecalciferol (Vitamin D3) [Vitamin D3] 1,000 unit PO DAILY 10/31/17 [History] Docusate Sodium [Dok] 100 mg PO DAILY PRN 10/31/17 [History] Fluticasone Propionate Nasal [Flonase] 2 spray NS DAILY 10/31/17 [History] Ipratropium/Albuterol Neb [Duoneb] 1 vial IH DAILY PRN 10/31/17 [History] Psyllium Husk [Daily Fiber] 0.52 gm PO QID PRN 10/31/17 [History] Lisinopril [Zestril] 40 mg PO DAILY tablet 11/03/17 [Rx] amLODIPine [Norvasc] 5 mg PO DAILY #30 tablet 11/03/17 [Rx] Allergies/Adverse Reactions: 3 Allergy/AdvReac Type Severity Reaction Status Date / Time cat pelt standardized Allergy Rash Verified 04/26/17 11:22 allergenic ex Penicillins Allergy Hives Verified 03/11/17 15:30 ragweed pollen Allergy See Verified 03/11/17 15:30 Comments Date of admission: 10/31/17 20:41 Primary care physician: Olaf Joseph DO Consults: 11/01/17 08:36 Consult to Case Management [CONS] Routine Comment: Placement in [facility] 11/01/17 16:49 Consult to Administrative Assistant Receptionist [CONS] Routine Reason for SW Consult: patient is unhappy with current ecf. He wants to be placed somewhere else. 11/04/17 13:07 Consult to Physical Therapy [CONS] Routine Comment: Evaluate, develop and implement POC Reason for Consult: evaluate for ECF Does patient have active BEDREST order?: No Is patient medically & hemodynamically stable?: Yes Patient assessed for mobility or mobilized this visit?: Yes 11/04/17 13:08 Consult to Occupational Therapy [CONS] Routine Comment: Evaluate, develop and implement POC Reason for Consult: ecf placement Does patient have active BEDREST order?: No Is patient medically & hemodynamically stable?: Yes Patient assessed for mobility or mobilized this visit?: Yes Discharging clinician: Jluis Patel Anticipated date of discharge: 11/05/17 - Constitutional Vitals: Temp Pulse Resp BP Pulse Ox 98.5 F 73 16 158/92 93 11/05/17 07:15 11/05/17 07:15 11/05/17 08:00 11/05/17 07:15 11/05/17 08:00 General appearance: Present: A&O X 3, morbidly obese - Head Head exam: Present: atraumatic, normocephalic - Eye Eye exam: Present: PERRL, conjuntiva pink, sclera anicteric Pupils: Present: PERRL - Neck Neck exam general surgery: Present: supple, trachea midline. Absent: lymphadenopathy - Respiratory Respiratory exam: Present: decreased breath sounds (Diminished throughout), CTAB. Absent: accessory muscle use, rales, rhonchi, wheezes - Cardiovascular Cardiovascular exam: Present: RRR, +S1, +S2. Absent: diastolic murmur, gallop, rubs, systolic murmur - GI/Abdominal GI/Abdominal exam: Present: normal bowel sounds, soft, no peritoneal signs. Absent: distended, tenderness - Extremities Exam Extremities exam: Present: warm, radial pulses palpable and symmetrical. Absent : calf tenderness, cyanotic, pedal edema - Neurological Exam Neurological exam: Present: CN II-XII intact, oriented X3, no focal deficits. Absent: pronater drift, facial droop, speech deficit - Skin Skin exam: Present: dry, intact - Patient Status Disposition: Transfer SNF Condition: Fair Functional capacity at discharge: uses cane/walker (And other assistive devices) Overall status at discharge: patient is back to baseline - Discharge Instructions Follow Up With: Olaf Joseph DO [Primary Care Provider] - Joe Pugh MD [Partnered Physician] - 12/17/17 2:30 pm Anshu Barakat DO [Non-Partnered Physician] - 11/24/17 8:30 am Additional Instructions: Please make a follow up appointment with Optometry once discharged. - Diet and Activity Activity: other (Ambulate only with assistive devices) Diet: advance to your usual diet
--- NOTE | 2017-11-05 10:13 | Physician Discharge Referral ---
ExtendedCare Referral Info Transfer To: [facility] Provider in Charge after Transfer: PCP, Other (Facility provider) Institutional Level of Care: Skilled - Diagnosis (1) Double vision Priority: Primary Status: Resolved (2) Hypertension Priority: Secondary Status: Chronic (3) Depression Priority: Secondary Status: Chronic (4) COPD (chronic obstructive pulmonary disease) Priority: Secondary Status: Chronic (5) CHF (congestive heart failure) Priority: Secondary Status: Chronic (6) Respiratory failure with hypoxia Priority: Secondary Status: Chronic (7) Sleep apnea Priority: Secondary Status: Acute Prognosis: Fair Aware of Diagnosis: Patient Aware of Prognosis: Patient - Transfer Medications Prescriptions: amLODIPine [Norvasc] 5 mg PO DAILY #30 tablet Home Medications: Carvedilol [Coreg] 50 mg PO BID 08/19/15 [History] Oxygen 2 l AER CONT 08/19/15 [History] Sertraline [Zoloft] 100 mg PO HS 08/19/15 [History] hydrOXYzine HCl [Hydroxyzine HCl] 50 mg PO HS 08/19/15 [History] Budesonide/Formoterol 160/4.5 [Symbicort 160/4.5] 2 puff IH BIDR 12/11/15 [ History] cloNIDine HCl [CloNIDine HCl] 0.1 mg PO TID 12/11/15 [History] hydroCHLOROthiazide [Hydrochlorothiazide] 25 mg PO DAILY 12/11/15 [History] Atorvastatin Calcium [Lipitor] 20 mg PO DAILY 02/07/16 [History] Aspirin 81 mg PO DAILY tab.chew 04/09/16 [Rx] TraZODone 100 mg PO HS PRN #0 tablet 04/09/16 [Rx] Folic Acid 1 mg PO DAILY #30 tablet 03/11/17 [Rx] LORazepam [Ativan] 0.5 mg PO HS #6 tablet 03/11/17 [Rx] Ferrous Sulfate [Iron] 325 mg PO BID 04/26/17 [History] Omeprazole [PriLOSEC] 20 mg PO DAILY 04/26/17 [History] Cholecalciferol (Vitamin D3) [Vitamin D3] 1,000 unit PO DAILY 10/31/17 [History] Docusate Sodium [Dok] 100 mg PO DAILY PRN 10/31/17 [History] Fluticasone Propionate Nasal [Flonase] 2 spray NS DAILY 10/31/17 [History] Ipratropium/Albuterol Neb [Duoneb] 1 vial IH DAILY PRN 10/31/17 [History] Psyllium Husk [Daily Fiber] 0.52 gm PO QID PRN 10/31/17 [History] Lisinopril [Zestril] 40 mg PO DAILY tablet 11/03/17 [Rx] amLODIPine [Norvasc] 5 mg PO DAILY #30 tablet 11/03/17 [Rx] Allergies/Adverse Reactions: 3 Allergy/AdvReac Type Severity Reaction Status Date / Time cat pelt standardized Allergy Rash Verified 04/26/17 11:22 allergenic ex Penicillins Allergy Hives Verified 03/11/17 15:30 ragweed pollen Allergy See Verified 03/11/17 15:30 Comments - Respiratory Orders Oxygen / L per min (2 L/m per home dose) Smoking Cessation: Smoking cessation has been advised. For more information, call the [employer] Tobacco Quit Line at 2-614-KUAG-NOW. - Advance Directives Code Status: Full Code - Mobility Orders Ambulate (With assistance) - Rehabiliation Orders Rehab Potential: Fair Rehab Orders: Evaluation for Physical Therapy, Evaluation for Occupational Therapy - Diet Orders Cardiac CERTIFICATION: I certify that the transfer of the above named patient to an Extended Care Facility is necessary for the continuing treatment of the diagnosis listed. The above information is true and accurate reflection of patient's current condition. Confidential - Redisclosure prohibited without a patient's written consent.
[2017-11-05] MEDS: hydrOXYzine pamoate 25 MG CAPSULE PO SCH (20:35)
[2017-11-05] MEDS: *HR* LORazepam 0.5 MG TABLET PO SCH (20:36)
[2017-11-06] MEDS: Albuterol 2.5 MG/3 ML NEBULIZER IH SCH ×2 (03:32→07:50)
[2017-11-06] MEDS: *HR* Heparin 5,000 UNIT/ML VIAL SQ SCH (05:14)
[2017-11-06] MEDS: Budesonide/Formoterol 160/4.5 MDI IH SCH (07:50)
--- NOTE | 2017-11-06 08:57 | Internal Med Progress Note ---
Date of Encounter: 11/06/17 Time of Encounter: 08:54 - Assessment and plan (1) Double vision Current Visit: Yes Status: Resolved Assessment and plan: 11/06/17 Has double vision at baseline due to TBI. On the day of admission his double vision was markedly worse. However it improved prior to arrival to the ED. He has not had a recurrence. MRI brain unremarkable. Unable to complete carotid artery duplex however, given that his double vision is binocular could not be explained by carotid artery pathology. Throughout the stay TIA/CVA workup was found to be negative. Patient approved for a bed at [facility]. We will discharge today. All vital signs remained stable, no further concerns or complaints. -The patient has been instructed to Follow up with ophthalmology outpatient for further evaluation. He denies any further questions or concerns. (2) Hypertension Current Visit: Yes Status: Chronic Assessment and plan: 11/06/17 History of HTN, controlled with amlodipine,Coreg, clonidine lisinopril and hydrochlorothiazide. Blood pressure remained stable no issues throughout the stay, continue anti-HTN medications upon discharge Qualifiers: Hypertension type: essential hypertension Qualified Code(s): I10 - Essential (primary) hypertension (3) Depression Current Visit: Yes Status: Chronic Assessment and plan: Continue antidepressants upon discharge Qualifiers: Depression Type: unspecified Qualified Code(s): F32.9 - Major depressive disorder, single episode, unspecified (4) COPD (chronic obstructive pulmonary disease) Current Visit: Yes Status: Chronic Assessment and plan: Not in acute exacerbation. On 2 L nasal cannula chronically, continue upon discharge, continue bronchodilator upon discharge Qualifiers: COPD type: unspecified COPD Qualified Code(s): J44.9 - Chronic obstructive pulmonary disease, unspecified (5) CHF (congestive heart failure) Current Visit: Yes Status: Chronic Assessment and plan: 11/06/17 History of CHF, patient resting comfortably in no respiratory distress, no events reported overnight. Continue Coreg and lisinopril, HCTZ upon discharge Qualifiers: Heart failure type: diastolic Heart failure chronicity: unspecified Qualified Code(s): I50.30 - Unspecified diastolic (congestive) heart failure (6) Respiratory failure with hypoxia Current Visit: Yes Status: Chronic Assessment and plan: Respiratory failure is chronic secondary to COPD. Not requiring additional O2 supplementation. No respiratory distress. Continue supplemental oxygen when necessary Qualifiers: Chronicity: chronic Qualified Code(s): J96.11 - Chronic respiratory failure with hypoxia (7) Sleep apnea Current Visit: Yes Status: Acute Assessment and plan: 11/06/17 History of sleep apnea, should discharged today. Continue CPAP per prior settings upon discharge. Qualifiers: Qualified Code(s): G47.33 - Obstructive sleep apnea (adult) (pediatric) - Time Spent With Patient Total time spent is greater than 50% in coordination of care (as documented) at patient's floor/unit and/or counseling patient: 25 - 35 minutes - Subjective Interval history: Mr. Patel is a 67 year old male a resident of [facility] with past medical history of TBI with baseline double vision, chronic LE edema, JOEL, COPD on chronic O2, hypertension, depression and history of type B aortic dissection who presented with sudden onset of worsening double vision which has since resolved. Patient was seen and examined at bedside. Reports that it is feeling much better. Recurrence of double vision since his stay, no events reported overnight. Patient is ready for discharge today. Troponin levels been completed and the patient will discharge to [facility] I will - Constitutional Vitals: Temp Pulse Resp BP Pulse Ox 98.5 F 71 18 148/94 98 11/06/17 07:13 11/06/17 07:13 11/06/17 07:50 11/06/17 07:13 11/06/17 07:50 General appearance: Present: A&O X 3, morbidly obese - Head Head exam: Present: atraumatic, normocephalic - Eye Eye exam: Present: PERRL, conjuntiva pink, sclera anicteric Pupils: Present: PERRL - Neck Neck exam general surgery: Present: supple, trachea midline. Absent: lymphadenopathy - Respiratory Respiratory exam: Present: decreased breath sounds, CTAB. Absent: accessory muscle use, rales, rhonchi, wheezes - Cardiovascular Cardiovascular exam: Present: RRR, +S1, +S2. Absent: diastolic murmur, gallop, rubs, systolic murmur - GI/Abdominal GI/Abdominal exam: Present: normal bowel sounds, soft, no peritoneal signs. Absent: distended, tenderness - Extremities Exam Extremities exam: Present: warm, radial pulses palpable and symmetrical. Absent : calf tenderness, cyanotic, pedal edema - Neurological Exam Neurological exam: Present: CN II-XII intact, oriented X3, no focal deficits. Absent: pronater drift, facial droop, speech deficit - Skin Skin exam: Present: dry, intact Internal Medicine: Result - Labs CBC & Chem 7: 11/01/17 00:38 11/02/17 08:00 - ABG Interpretation ABG results: PT/INR, D-dimer PT 11.4 Seconds (9.4-12.1) 10/31/17 17:12 Consult Discharge Plan - Plan Additional Instructions: Please make a follow up appointment with Optometry once discharged. Referrals: Olaf Joseph DO [Primary Care Provider] - Joe Pugh MD [Partnered Physician] - 12/17/17 2:30 pm Anshu Barakat DO [Non-Partnered Physician] - 11/24/17 8:30 am Prescriptions: amLODIPine [Norvasc] 5 mg PO DAILY #30 tablet
[2017-11-06] MEDS: hydroCHLOROthiazide 25 MG TABLET PO SCH (09:17)
[2017-11-06] MEDS: Lisinopril 20 MG TABLET PO SCH (09:18)
[2017-11-06] MEDS: amLODIPine 5 MG TABLET PO SCH (09:18)
[2017-11-06] MEDS: cloNIDine HCl 0.1 MG TABLET PO SCH (09:18)
[2017-11-06] MEDS: Folic Acid 1 MG TABLET PO SCH (09:20)
[2017-11-06] MEDS: Aspirin 81 MG TAB.CHEW PO SCH (09:20)
[2017-11-06] MEDS: Cholecalciferol (D-3) 1,000 UNIT TABLET PO SCH (09:21)
[2017-11-06] MEDS: Psyllium 1 PACKET POWD.PACK PO SCH (09:21)
[2017-11-06 10:28] VITALS: BP 127/87
== END 2017-11-06 10:40 ==
LOC: EMEROO 16:57 → 3BNU 16:57
PROVIDERS: ADMIT Internal Medicine; ATTEND Internal Medicine

== ENCOUNTER 2019-12-17 17:11 | Observation (INO) ==
[2019-12-17] MEDS ORDERED: Naloxone 0.4 MG/ML INJ IVP PRN (20:46)
[2019-12-17] MEDS ORDERED: Neosporin OINT 15 GM TUBE TP PRN (20:49)
[2019-12-17] MEDS ORDERED: Perflutren Lipid Microsphere 1.3 ML in 0.9 % Sodium Chloride 8.7 ML IVP ONE (21:12)
[2019-12-18] MEDS: Psyllium 1 PACKET POWD.PACK PO SCH ×3 (00:10→20:34)
[2019-12-18] MEDS: traZODone 50 MG TABLET PO PRN ×2 (00:10→22:34)
[2019-12-18] MEDS: cloNIDine HCL 0.1 MG TABLET PO SCH ×3 (00:10→20:34)
[2019-12-18] MEDS: Ipratropium/Albuterol Neb 3 ML IH PRN ×3 (00:19→15:08)
[2019-12-18] MEDS ORDERED: *HR* LORazepam 2 MG/ML VIAL IVP PRN ×3 (01:05)
[2019-12-18 01:38] LABS: Hematocrit 32.4 % (37.5-50.1); Hemoglobin 9.8 g/dL (12.9-16.9); Mean Corpuscular HGB Conc 30.2 g/dL (31.6-35.5); Mean Corpuscular Hemoglobin 30.4 pg (28.0-33.3); Mean Corpuscular Volume 100.6 fL (83.0-100.0); Mean Platelet Volume 9.4 fL (9.4-12.4); Platelet Count 243 K/mcL (140-400); Red Blood Count 3.22 M/mcL (4.19-5.50); Red Cell Distribution Width 16.2 % (11.5-14.5); White Blood Count 9.3 K/mcL (4.3-11.1)
[2019-12-18 01:46] LABS: INR 1.2; Prothrombin Time 13.5 Seconds (9.4-12.1)
[2019-12-18] MEDS: Thiamine (B-1) 100 MG, Folic Acid 1 MG, MVI, adult with vitamin K 10 ML in 0.9 % Sodi... IVPB SCH ×2 (01:51→17:36)
[2019-12-18 02:00] LABS: Alanine Aminotransferase 14 Units/L (7-52); Albumin 3.4 g/dL (3.5-5.7); Albumin/Globulin Ratio 1.5 (1.1-2.2); Alkaline Phosphatase 37 Units/L (34-104); Aspartate Amino Transferase 15 Units/L (13-39); BUN/Creatinine Ratio 22 (6-26); Bilirubin,Total 0.6 mg/dL (0.3-1.0); Blood Urea Nitrogen 23 mg/dL (8-23); Calcium 8.7 mg/dL (8.6-10.3); Carbon Dioxide 29 mEq/L (23-29); Chloride 108 mEq/L (98-107); Chol/HDL Ratio 3.3 (0-4.9); Cholesterol 174 mg/dL (< 200); Globulin 2.2 g/dL (2.4-3.5); Glucose 114 mg/dL (70-105); HDL Cholesterol 53 mg/dL (40-59); LDL Cholesterol,Calculated 103 mg/dL (0-99); Magnesium 1.7 mg/dL (1.6-2.6); Osmolality,Calculated 299 (280-300); Potassium 3.6 mEq/L (3.5-5.1); Sodium 142 mEq/L (136-145); Total Protein 5.6 g/dL (6.4-8.9); Triglycerides 92 mg/dL (< 150); eGFR For African Americans > 60 (> 60); eGFR For Non-African Americans > 60 (> 60)
[2019-12-18 03:37] LABS: Estimated Average Glucose 117 mg/dl
[2019-12-18] MEDS: *HR* Rivaroxaban 10 MG TABLET PO SCH (08:06)
[2019-12-18] MEDS: Furosemide 20 MG TABLET PO SCH (08:07)
[2019-12-18] MEDS ORDERED: Acetaminophen 325 MG TABLET PO PRN (14:14)
[2019-12-18] MEDS: Ipratropium/Albuterol Neb 3 ML IH SCH ×3 (16:30→23:46)
[2019-12-18] MEDS: carvediloL 25 MG TABLET PO SCH (17:36)
[2019-12-19] MEDS: Ipratropium/Albuterol Neb 3 ML IH SCH ×6 (03:50→23:17)
[2019-12-19] MEDS: cloNIDine HCL 0.1 MG TABLET PO SCH ×2 (08:40→19:40)
[2019-12-19] MEDS: amLODIPine 5 MG TABLET PO SCH (08:40)
[2019-12-19] MEDS: carvediloL 25 MG TABLET PO SCH ×2 (08:41→17:03)
[2019-12-19] MEDS: *HR* Rivaroxaban 10 MG TABLET PO SCH (08:41)
[2019-12-19] MEDS: Psyllium 1 PACKET POWD.PACK PO SCH ×2 (08:41→19:40)
[2019-12-19] MEDS: Furosemide 20 MG TABLET PO SCH (08:41)
[2019-12-19] MEDS: Fluticasone Propionate Nasal 50 MCG/SPRAY BOTTLE NS SCH (10:57)
[2019-12-19] MEDS: traZODone 50 MG TABLET PO PRN (22:58)
[2019-12-20] MEDS: Ipratropium/Albuterol Neb 3 ML IH SCH ×6 (03:37→23:03)
[2019-12-20] MEDS: Fluticasone Propionate Nasal 50 MCG/SPRAY BOTTLE NS SCH (08:32)
[2019-12-20] MEDS: Psyllium 1 PACKET POWD.PACK PO SCH ×2 (08:32→20:09)
[2019-12-20] MEDS: cloNIDine HCL 0.1 MG TABLET PO SCH ×2 (08:33→20:08)
[2019-12-20] MEDS: Furosemide 20 MG TABLET PO SCH (08:33)
[2019-12-20] MEDS: carvediloL 25 MG TABLET PO SCH ×2 (08:33→17:45)
[2019-12-20] MEDS: *HR* Rivaroxaban 10 MG TABLET PO SCH (08:33)
[2019-12-20] MEDS: amLODIPine 5 MG TABLET PO SCH (08:33)
[2019-12-20] MEDS: traZODone 50 MG TABLET PO PRN (23:24)
[2019-12-21] MEDS: Ipratropium/Albuterol Neb 3 ML IH SCH ×2 (03:15→07:25)
[2019-12-21 07:34] VITALS: BP 135/86
[2019-12-21] MEDS: Fluticasone Propionate Nasal 50 MCG/SPRAY BOTTLE NS SCH (08:25)
[2019-12-21] MEDS: *HR* Rivaroxaban 10 MG TABLET PO SCH (08:25)
[2019-12-21] MEDS: cloNIDine HCL 0.1 MG TABLET PO SCH (08:25)
[2019-12-21] MEDS: carvediloL 25 MG TABLET PO SCH (08:25)
[2019-12-21] MEDS: amLODIPine 5 MG TABLET PO SCH (08:25)
[2019-12-21] MEDS: Furosemide 20 MG TABLET PO SCH (08:25)
[2019-12-21] MEDS: Psyllium 1 PACKET POWD.PACK PO SCH (08:25)
== END 2019-12-21 11:25 | disposition hospice, home (50) ==
LOC: 3BNU
PROVIDERS: ADMIT Internal Medicine; ATTEND Internal Medicine